=== PATIENT | female | born 1955 | race Caucasian/White ===

== ENCOUNTER 2021-02-09 12:50 | Emergency (ER) | payer OTHER, MEDICARE, SELFPAY ==
[2021-02-09 12:56] VITALS: BP 126/83; PULSE 65; RESP 16; TEMP 36.6; O2SAT 97
--- NOTE | 2021-02-09 13:51 | ED.FEMALEGU ---
HPI - Female Genitourinary General Chief complaint: Urogenital-Female Stated complaint: Urinary Problem Time Seen by Provider: 02/09/21 13:52 Source: patient Mode of arrival: ambulatory Limitations: no limitations History of Present Illness HPI Narrative: Shell Marin is a 65 yo female with PMH of GERD, PVCs, who comes complaining of dysuria including difficulty starting stream and burning with urination x3 days; mild lower back pain no fever no vaginal discharge Related Data Allergies Allergy/AdvReac Type Severity Reaction Status Date / Time No Known Allergies Allergy Verified 02/09/21 13:38 Review of Systems Review of Systems: CONSTITUTIONAL: Denies fever, chills, sweats. EYES: Denies visual changes, redness, discharge. ENT: Denies rhinorrhea, congestion, sore throat, otalgia. CARDIOVASCULAR: Denies chest pain, palpitations, edema. RESPIRATORY: Denies dyspnea, wheezing, cough GASTROINTESTINAL: Denies abdominal pain, nausea, vomiting, diarrhea. GENITOURINARY: Has dysuria, no hematuria, abnormal discharge SKIN: Denies rash or itching. NEUROLOGIC: Denies numbness, or focal weakness. PSYCHIATRIC: Denies anxiety or depression. [facility] Past Medical History Medical History GERD (gastroesophageal reflux disease) PVC (premature ventricular contraction) Social History Social History (Updated 02/09/21 @ 13:54 by Vivian Neumann CNP) Smoking status: Never smoker Comments At time of signature, I agree with nursing past medical, surgical, social and family history. There is no relevant family history pertinent to the presenting complaint. Exam Narrative: GENERAL: This is a well-nourished, well-developed patient, in mild distress. HEAD: normocephalic, atraumatic. EYES: PERRL. Sclera clear/white. Vision is grossly intact. EARS: External ears normal, Hearing grossly intact. NOSE: External nose normal THROAT: Mucous membranes moist, NECK: Neck supple, non-tender CARDIOVASCULAR: Regular rate and rhythm without murmurs, gallops, or rubs. RESPIRATORY: Clear to auscultation. Breath sounds equal bilaterally. No wheezes, rales, or rhonchi. GASTROINTESTINAL: Abdomen soft, no tenderness SKIN: warm, intact with no suspicious lesions or rash, good texture and turgor. NEURO: awake, alert, and oriented to person, place and time. There were no obvious focal neurologic abnormalities. Steady gait EXTREMITIES: Normal range of motion. BACK: Nontender without deformity Course Course Emergency Course: Patient comes with symptoms of mild burning, difficulty starting urinary flow x3 days-has had urinary tract infections in the distant past UA shows no nitrates no leukocytes no blood Discussed with patient and treated for dysuria Bactrim DS twice daily x5 days Vital Signs Vital signs: Vital Signs Temperature 97.8 F 02/09/21 12:56 Pulse Rate 65 02/09/21 12:56 Respiratory Rate 16 02/09/21 12:56 Blood Pressure 126/83 02/09/21 12:56 Pulse Oximetry 97 02/09/21 12:56 Temperature 97.8 F 02/09/21 12:56 Pulse Rate 65 02/09/21 12:56 Respiratory Rate 16 02/09/21 12:56 Blood Pressure 126/83 02/09/21 12:56 Pulse Oximetry 97 02/09/21 12:56 MDM - Female Genitourinary Differential Diagnosis Differential diagnosis: Likely urinary tract infection, cervicitis, cystitis and other Lab Data Labs: Urine Glucose Negative Reference Range: Negative Urine Bilirubin Negative Reference Range: Negative Urine Ketone Negative Reference Range: Negative Urine Specific [place] 1.010 Reference Range:1.001-1.035 Urine Blood Negative
== END 2021-02-09 14:06 | disposition home or self-care (01) ==
PROVIDERS: Emergency Provider Nurse Practitioner
DX: R30.0 Dysuria (principal); K21.9 Gastro-esophageal reflux disease without esophagitis; I49.3 Ventricular premature depolarization
CPT/HCPCS: 81003; 99213; G0463

== ENCOUNTER 2023-09-02 11:22 | Emergency (ER) | payer BC, MEDICARE, SELFPAY ==
--- NOTE | ~2023-09-02 | XR_ITS ---
4 views of the orbits CLINICAL HISTORY: Trauma FINDINGS: No fracture identified. Orbital margins appear intact. Paranasal sinuses are clear. Soft ti ssues are unremarkable. IMPRESSION: No significant abnormality seen. Reviewed, dictated and finalized at location .
[2023-09-02 11:35] VITALS: BP 162/101; PULSE 70; RESP 16; TEMP 37; O2SAT 100
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
[2023-09-02 11:40] VITALS: BP 167/93
== END 2023-09-02 12:38 | disposition home or self-care (01) ==
PROVIDERS: Emergency Provider Nurse Practitioner Family; PCP Internal Medicine
DX: S05.11XA Contusion of eyeball and orbital tissues, right eye, initial encounter (principal); W50.0XXA Accidental hit or strike by another person, initial encounter; K21.9 Gastro-esophageal reflux disease without esophagitis
CPT/HCPCS: 70200; 99213; G0463

== ENCOUNTER 2024-07-25 17:16 | Emergency (ER) | payer OTHER, MEDICARE, SELFPAY ==
--- OUTSIDE RECORDS SUMMARY | 2024-07-25 17:19 | XMS_ITS | Clinical Summary ---
Author Organization [facility] Address [address] [place] [address] Care Team Providers Care Service Car Driver Name Role Phone Marco Ramirez MD Primary Care Provider [phone] Source Comments [facility],non-owned Affiliates and Associated Physician Practices is amultiple site organization consisting of ambulatory clinics and hospital sitesin [place], [place], [place] and [place]. This disclosure is being madepursuant to the Care Everywhere program and may not contain all information available regarding this patient. 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 Gender Identity Not on file Sexual Orientation Not on file Plan of Treatment Health Maintenance Due Date Last Done Comments COLOGUARD (AGES 45-75) - COLON CA SCREENING 1955 COLON MONITORING 1955 COLONOSCOPY - COLON CA SCREENING 1955 CT COLONOGRAPHY - COLON CA SCREENING 1955 Colorectal Cancer Screening 1955 FIT - COLON CA SCREENING 1955 FLEX SIG - COLON CA SCREENING 1955 LIPID TESTING 1955 HEPATITIS C SCREENING 10/31/1973 DTAP/TDAP/TD VACCINES (1 - Tdap) 11/04/1974 PNEUMOCOCCAL VACCINE 50+ (1 of 1 - PCV) 11/04/2005 ZOSTER VACCINE (1 of 2) 11/04/2005 COVID-19 VACCINE (3 - 2024-25 season) 2023 06/27/2020, 06/06/2020 DEPRESSION SCREENING 02/22/2024 INFLUENZA VACCINE (Season Ended) 2024 11/03/2020, 01/11/2020, 03/28/2014, Additional history exists MAMMOGRAM 08/09/2025 08/10/2023, 03/24, 04/02/2021, Additional history exists Respiratory Syncytial Virus (RSV) Vaccine Pt: or over 60 yrs (1 - 1-dose 75+ series) 11/04/2030 BONE DENSITY TESTING Completed 07/07/2016, 07/08/19 17 HEPATITIS B VACCINE Aged Out No longe r eligible based on patient's age to complete this topic HIB VACCINE Aged Out No longer eligi ble based on patient's age to complete this topic HPV VACCINE Aged Out No longer eligi ble based on patient's age to complete this topic MENINGOCOCCAL (Group B) VACCINE SHARED DECISION-MAKING Aged Out No longer eligible based on patient's age to complete this topic MENINGOCOCCAL GROUPS A/C/Y/W VACCINE Aged Out No longer eligible based on patient's age to complete this topic Procedures Procedure Name Priority Date/Time Associated Diagnosis Comments MAMMO BILAT SCREENING [place] PARTH Routine 08/10/2023 9:58 AM CDT Screening mammogram for breast cancer DEXA BONE DENSITY AXIAL SKELETON Routine 07/07/2016 7:50 AM CDT Post menopausal syndrome from Last 3 Months or Most Recently Relevant to Health Maintenance Results * MAMMO BILAT SCREENING [place] (08/10/2023 9:58 AM CDT) Anatomical Region Laterality Modality Breast Bilateral Mammography 08/10/2023 11:2 2 AM CDT Impressions 08/10/2023 11:22 AM CDT : There is no mammographic evidence of malignancy. OVERALL FINAL ASSESSMENT: BI-RADS Category 1: Negative. Annual screening mammography is recommended. > Interpreting Provider: Julia Szymanski MD on 08/10/2023 11:22 AM Narrative 08/10/2023 11:22 AM CDT EXAMINATION: BILATERAL DIGITAL SCREENING MAMMOGRAM AND BILATERAL BREAST TOMOSYNTHESIS HISTORY: Screening. COMPARISON: Serial examinations dating back to 2021. TECHNIQUE: BILATERAL digital breast tomosynthesis (DBT) and synthetic 2D digital mammogram images were obtained (bilateral craniocaudal and mediolateral oblique projections) including computer aided detection (CAD.) BREAST PARENCHYMAL COMPOSITION:Category B: There are scattered areas of fibroglandular density. MAMMOGRAM FINDINGS: There are no new suspicious masses, calcifications, or areas of architectural distortion in either breast, and there has been no significant interval change. us Marco Ramirez MD MAMMO ORDERABLES Final Result * DEXA BONE DENSITY AXIAL SKELETON (07/07/2016 7:50 AM CDT) Anatomical Region Laterality Modality Mammography 07/07/2016 7:57 AM CDT Narrative 07/07/2016 8:45 AM CDT BONE MINERAL DENSITY STUDY INDICATION: Osteoporosis screening. Postmenopausal status. FINDINGS: The average bone mineral density from L1 to L4 is 1.109 g/cm2. The T-score is -0.6 and the Z-score is 0.8. The average bone mineral density of the total mean hip is 0.948 g/cm2. The T-score is -0.5 and the Z-score is 0.6. ASSESSMENT: Findings consistent with normal total mean bone mineral density. No significant increased fracture risk. WORLD HEALTH ORGANIZATION DEFINITIONS OSTEOPENIA = -1 to -2.5 SD BELOW T SCORE. OSTEOPOROSIS = Less than -2.5 SD BELOW T SCORE. Edited by Mary Jo Lanza on 07/07/2016 8:18 AM Procedure Note Mary Beth Becker MD - 07/07/2016 BONE MINERAL DENSITY STUDY INDICATION: Osteoporosis screening. Postmenopausal status. FINDINGS: The average bone mineral density from L1 to L4 is 1.109 g/cm2. The T-score is -0.6 and the Z-score is 0.8. The average bone mineral density of the total mean hip is 0.948 g/cm2. The T-score is -0.5 and the Z-score is 0.6. ASSESSMENT: Findings consistent with normal total mean bone mineral density. No significant increased fracture risk. WORLD HEALTH ORGANIZATION DEFINITIONS OSTEOPENIA = -1 to -2.5 SD BELOW T SCORE. OSTEOPOROSIS = Less than -2.5 SD BELOW T SCORE. Edited by Mary Jo Lanza on 07/07/2016 8:18 AM us Marco Ramirez MD DEXA ORDERABLES Final Result from Last 3 Months or Most Recently Relevant to Health Maintenance Insurance [facility] Address: [address] [address] [facility] [place] [address] Care Teams Service Car Driver Relationship Specialty Start Date End Date Marco Ramirez MD PCP - General Internal Medicine 11/21/12
--- OUTSIDE RECORDS SUMMARY | 2024-07-25 17:19 | XMS_ITS | Clinical Summary ---
Author Organization [facility] Address [address] [place] [address] Care Team Providers Care Rn Integrity Name Role Phone Marco Ramirez MD Primary Care Provider + Allergies No known active allergies Medications aspirin 325 mg tablet Take 325 mg by mouth daily Active ezetimibe (ZETIA) 10 mg tablet Take 10 mg by mouth daily 1 Active pravastatin (PRAVACHOL) 20 mg tablet Take 1 tablet by mouth nightly 1 Active albuterol HFA (ProAir HFA) 90 mcg/actuation inhaler Inhale 2 puffs every 4 (four) hours as needed for wheezing or shortness of breath 8.5 g 1 Active Additional Information Patient not taking.Reported on 10/22/2021 multivitamin capsule Take 1 capsule by mouth daily Active Active Problems Problem Noted Date Diagnosed Date Combined forms of age-related cataract of both e yes 07/26/2019 Assessment & Plan (12/03/2019 10:02 AM CDT): Early. Non-visually significant. -- Observe Assessment & Plan (07/26/2019 10:46 AM CDT): Early. Non-visually significant. -- Observe Vitreous hemorrhage of left eye 07/26/2019 Assessment & Plan (12/03/2019 10:02 AM CDT): resolved Retinal hole of left eye 07/18/2019 Overview (07/26/2019): Onset: 07/17/19 S/p retinopexy 07/18/19 Assessment & Plan (12/03/2019 10:01 AM CDT): Operculated hole with small amount of hemorrhage status post (s/p) retinopexy 07/18/2019 -- Good barricade laser matured with 2 rows anteriorly, 3 posteriorly, no hemorrhage today -- Symptomatic flashes remain stable, likely from remaining operculum -- Remains without PVD noted on exam, will bring back for repeat exam 6 months or sooner PRN -- strict return precautions discussed including worsening floaters, flashes of light, curtains in vision Assessment & Plan (08/29/2019 9:44 AM CDT): Operculated hole with small amount of hemorrhage status post (s/p) retinopexy 07/18/2019 -- Good barricade laser maturing with 2 rows anteriorly, 3 posteriorly, no hemorrhage today -- Symptomatic flashes remain stable, likely from remaining operculum -- Remains without PVD noted on exam, will bring back for repeat exam -- strict return precautions discussed including worsening floaters, flashes of light, curtains in vision -- pt will RTC in 3 mo for repeat DFE OS Assessment & Plan (07/26/2019 10:46 AM CDT): Operculated hole with small amount of hemorrhage -- Good barricade laser maturing -- Still having some symptomatic flashes and no PVD noted on exam, will bring back for repeat exam -- strict return precautions discussed including worsening floaters, flashes of light, curtains in vision -- pt will RTC in 1 mo for repeat DFE OS Assessment & Plan (07/18/2019 12:14 PM CDT): Small superotemporal operculated hole with small amount of vitreous (vit) heme as well. No other RT/RD on [employer] -- given recent onset and ongoing symptoms, reasonable to proceed with laser retinopexy -- r/b/a discussed of laser treatment v observation and patient elects to proceed. See procedure note -- strict return precautions discussed including worsening floaters, flashes of light, curtains in vision -- pt will RTC in 1 week for repeat DFE OS Surgical History Surgery Date Site/Laterality Comments WISDOM TOOTH EXTRACTION RETINA SURGERY Left Medical History Medical History Date Comments Hyperlipidemia Mitral valve prolapse Retinal tear Family History Medical History Relation Name Comments Cancer Father Heart disease Mother Relation Name Status Comments Father Mother Social History Tobacco Use Types Packs/Day Years Used Date Smoking Tobacco: Never Tobacco Cessation:Counseling Given: Not Answered Alcohol Use Standard Drinks/Week Comments Never 0 (1 standard drink = 0.6 oz pur e alcohol) AUDIT-C Answer Date Recorded Q1: How often do you have a drink containing alc ohol? 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 Gender Identity Not on file Sexual Orientation Not on file Obstetrics History Last Filed Vital Signs Vital Sign Reading Time Taken Comments Blood Pressure 120/80 10/22/2021 8:41 AM CDT Pulse 63 10/22/2021 8:41 AM CDT Temperature 36.9 C (98.5 F) 10/22/2021 8:41 AM CDT Respiratory Rate 16 10/22/2021 8:41 AM CDT Oxygen Saturation 99% 10/22/2021 8:41 AM CDT Inhaled Oxygen Concentration - - Weight 60.8 kg (134 lb) 10/22/2021 8:41 AM CDT Height 156.2 cm (5' 1.5) 10/22/2021 8:41 AM CDT Body Mass Index 24.91 10/22/2021 8:41 AM CDT Plan of Treatment Health Maintenance Due Date Last Done Comments Breast Cancer Screening-Mammogram 1955 Depression Screening 1955 Fall Risk Assessment 1955 Hepatitis C Screening 1955 Osteoporosis Screening-Bone Density Scan 1955 Pneumococcal vaccine 65+ (1 of 1 - PCV) 11/04/2005 Zoster Vaccine (1 of 2) 11/04/2005 Well Visit 65+ 11/04/2020 Colon Cancer Screening-Colonoscopy 06/22/2022 06/22/2012 Influenza Vaccine (Season Ended) 2024 11/03/2020, 01/11/2020, 03/28/2014, Additional history exists DTaP/Tdap/Td Vaccine (3 - Td or Tdap) 12/04/2028 12/04/2018, 03/01/2008, 09/07/2005 Hepatitis B Screening Completed 10/05/2004 , 12/17/2003, 10/30/2003 Colon Cancer Screening-CT Colonography Discontinued 06/22/2012 Colon Cancer Screening-DNA Stool Discontinued 06/23/19 Colon Cancer Screening-FIT Discontinued 06/22/2012 Colon Cancer Screening-Sigmoidoscopy Discontinued 06/22/2012 Procedures Procedure Name Priority Date/Time Associated Diagnosis Comments COLONOSCOPY 06/22/2012 12:00 AM CDT from Last 3 Months or Most Recently Relevant to Health Maintenance Results * COLONOSCOPY (06/22/2012 12:00 AM CDT) Anatomical Region Laterality Modality Other Narrative 06/22/2012 12:00 AM CDT Ordered by an unspecified provider. Procedure Note Provider, MD Vazquez - 06/22/2012 12:00 AM CDT PROCEDURE REPORT Patient: TERESA MARIN Account: [id number] Room No: : 1955 Patient Type: [facility] Attend.: Nicolás Dewey M.D. Admit Date: 06/22/2012 Dict.: Nicolás Dewey M.D. Disch. Date: 06/22/2012 NAME OF PROCEDURE: Colonoscopy. DATE OF PROCEDURE: June 22, 2012. PATIENT REFERRED BY: Dr. Sharma. PREVIOUS PROCEDURE: Colonoscopy with polyps removed. X-RAYS: None. HISTORY AND PHYSICAL EXAMINATION: The patient is a 56-year old whitefemale returning now for screening colonoscopy and follow up of colonic polyps.She denies any specific complaints and she is otherwise doing clinicallywell. Physical examination is that of a well developed, well nourished 56-yearold female in no acute distress. She is nonicteric. Her lungs are clear. Heartwas regular. GI was soft and supple. Extremities showed no calf pain, cordsor edema. PRE-PROCEDURE DIAGNOSES: 1. Screening colonoscopy in a 56-year old female. 2. History of adenomatous polyps. PHYSICIAN: Nicolás Dewey M.D. INSTRUMENT USED: Hubspan video endoscope. MEDICATIONS: Per Anesthesia. FINDINGS: The colonoscope was introduced and passed to the cecum. Thepatient tolerated the procedure well. There were no complication. Upon withdrawalof the colonoscope, a sessile polyp was noted opposite the ileocecal valve atthe mouth of the cecum. This was picked up, hot biopsied and destroyed. The remainder of the cecum, right and transverse colons were normal. Thepatient did have diverticulosis scattered throughout the colon. In the leftcolon, several small, hyperplastic appearing polyps were noted. These weresimply picked up, cauterized and destroyed. Once again there were multiple diverticula. The remainder of the left, retrosigmoid and rectum werenormal. Retroflexed view of the internal anal area showed small internalhemorrhoidal tissue. Perianal examination showed no perianal disease, no rectalmasses. COMPLICATIONS: None. POST-PROCEDURE DIAGNOSES: 1. Colonic polyps, status post hot biopsy or cautery and destruction.One polyp removed in the right colon, several small, hyperplasticpolyps cauterized in the left and rectosigmoid. 2. Diverticulosis. 3. Otherwise normal screening colonoscopy to the cecum with awithdrawal time of 8 minutes and 38 seconds. Preparation was good. POST-PROCEDURE ORDERS: 1. Post sedation instructions. 2. High fiber diet. 3. Check pathology. 4. Repeat colon in five years pending pathology report. 5. Follow up with Dr. Sharma. Nicolás Dewey M.D. JULIA/alexus TD: 06/23/2012 09:23 CC: Dr. Sharma Authenticated by Nicolás Dewey MD On 06/26/2012 12:57:45 PM us Historical Provider ENDOSCOPY PROCEDURES Hilda l Result from Last 3 Months or Most Recently Relevant to Health Maintenance Insurance [employer] Care Teams Rn Integrity Relationship Specialty Start Date End Date Marco Ramirez MD [facility] - General 10/12/16
--- OUTSIDE RECORDS SUMMARY | 2024-07-25 17:19 | XMS_ITS | Encounter Summary ---
Author Organization [facility] Address [address] [place] [address] Care Team Providers Care Sand Molder Name Role Phone Marco Ramirez MD Primary Care Provider [phone] Reason for Visit * Reason Comments Provider Call Encounter Details Date Type Department Care Team (Late st Contact Info) Description 05/31/2024 Telephone [facility] Primary Care [address] [place] [address] Marco Ramirez MD [address] [facility] [address] [place] [address] Provider Call Social History Tobacco Use Types Packs/Day Years Used Date Smoking Tobacco: Never Passive Smoke Exposure: Never Smokeless Tobacco: Never Alcohol Use Standard Drinks/Week Comments Yes 0 (1 standard drink = 0.6 oz pur e alcohol) 4x/year Feeling Safe Answer Date Recorded Are you in a relationship wi th someone who hurts you emotionally and/or physically? 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 Topic: Pwlvroyc-Ow-Euxgvchw Call >> May 31, 2024 10:36 AM Bettie Watson wrote: Caller is requesting to speak with Clinical Care Team. Caller Name: bam with [facility] Callback Number: [phone] Clinician Type: Other healthcare professional not listed above Call Notes: bam with [facility] states patient is supposed to get mri of lumbar spine, states additional clinic information is needed to get this approved, states he sent over a fax an hour ago fax [phone] Is this addressing an immediate patient care need? No documented in this encounter Plan of Treatment Upcoming Encounters Date Type Department Care Team (Late st Contact Info) Description 11/27/2024 2:40 PM CDT Office Visit [facility] [place] [address] Marco Ramirez MD [address] [place] [address] [address] 06/26/2025 11:45 AM CDT Office Visit [facility] Heart and Vascular At [facility] [address] [facility] [address] [place] [phone] Sherman Mantilla MD [facility] S. [facility] [address] [place] [address] documented as of this encounter Visit Diagnoses Not on filedocumented in this encounter Care Teams Sand Molder Relationship Specialty Start Date End Date Marco Ramirez MD [address] [place] [address] [address] PCP - General Internal Medicine 08/01/23 documented as of this encounter
--- OUTSIDE RECORDS SUMMARY | 2024-07-25 17:19 | XMS_ITS | Encounter Summary ---
Author Organization [facility] Address [address] [place] [address] Care Team Providers Care Instructor Trainer Canine Service Name Role Phone John Kamara MD Primary Care Provider [phone] Encounter Details Date Type Department Care Team (Late st Contact Info) Description 12/13/[address] 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 Spoke with pt. given above message. /chen Electronically Signed by: Trinity Villasenor on Wednesday, December 13, 2006 * John Kamara MD - 07/07/2007 1:16 PM CDT SPECIALIST REFERRAL REQUEST DATE: DEC 13, 2006 Note created by: Shey Greene C 01:52 p Patient Name : TERESA MARIN Address: [address] [place] [address] D.O.B: 1955 SSN: [id number] Parent/Guardian if applicable: Patient Insurance: [employer] Policy#: [id number] Group #: Best To Call : HOME. Best Time to Call : ANYTIME. May We Leave Message At That Number : YES, LEAVE MESSAGE. Referring to: PHYSICAL THERAPY/REHAB [facility] PH: [phone] Reason for referral: neck pain ORDERING PHYSICIAN : JOHN KAMARA MD PRIORITY OF REFERRAL: AT PATIENT'S CONVENIENCE. OFFICE PTA & PHONE: Shey Greene C FOR SCHEDULING USE ONLY FIRST ATTEMPT Date:DEC 14, 2006 Federica Robles D 04:00 p Left Message with Family. son, he will have his mother call back to set [facility] APPOINTMENT DATE : 12/14/2006 ( 1:30 pm) Number of visits authorized : 12 EFFECTIVE DATES : Valid from: 12/14/2006 To: 03/16/2007 NT 12/14/06 04:22 pm Referral number: [id number] nn * John Kamara MD - 07/07/2007 1:16 PM CDT WEIGHT: 150lbs BLOOD PRESSURE: 128/86 Right Arm Sitting NURSE NAME: Chance Noel N TOBACCO USE Patient does not currently use tobacco. CHIEF COMPLAINT Neck pain HISTORY: neck pain no injury no trauma known SOCIAL HISTORY: TOBACCO USE: Has no significant smoking history. DISCUSSED SMOKING: neg. PHYSICAL EXAMINATION: CONSTITUTIONAL: GENERAL APPEARANCE: Healthy appearing patient in no distress. NECK/THYROID: Trachea midline. No thyroid enlargement, tenderness, or mass. No supraclavicular or cervical adenopathy. RESPIRATORY: Clear to auscultation and percussion. Normal respiratory effort. CARDIOVASCULAR: CARDIAC: Regular rhythm. No murmurs, rubs, or gallops. ARTERIAL: No aortic bruits. EDEMA/VARICOSITIES OF EXTREMITIES: No edema or varicosities. GASTROINTESTINAL: ABDOMEN: Soft, non-tender, without masses. Bowel sounds active. LIVER/SPLEEN/KIDNEY: No hepatosplenomegaly, tenderness or nodularity. Kidneys not palpable. MUSCULOSKELETAL EXAM: upper parasp m tender, nut sorter operator ok, full rom neck, mild ls tenderness ASSESSMENT/PLAN: 715.90-OSTEOARTHROSIS UNSPECIFIED check x ray try med, reassess, discussed MEDICATIONS: SKELAXIN ORAL TABLET 800 MG, 1 Two Times A Day, 12 Dispensed, status: NEW PRESCRIPTION, 12/13/2006. LAB ORDERS: Order number: [id number] Test Ordered: XRAY C SPINES, ROUTINE (5 VIEWS) W/OBL 724.5-BACK PAIN as above try pt SPECIALTY REFERRAL: PHYSICAL THERAPY/REHAB [facility] Patient Education: Risks, benefits, and possible side effects of medication(s) were reviewed with the patient. RETURN VISIT : Instructed to call if not improving. Electronically Signed by: John Kamara MD on Wednesday, December 13, 2006 documented in this encounter Plan of Treatment Upcoming Encounters Date Type Department Care Team (Late st Contact Info) Description 11/27/2024 2:40 PM CDT Office Visit [facility] Primary Care [address] [place] [address] John Kamara MD [address] [place] [address] [address] [place] [address] 06/26/2025 11:45 AM CDT Office Visit [facility] Heart and Vascular At [facility] [address] [facility] [address] [place] [address] Sherman Mantilla MD [facility] [address]. [facility] [address] [place] [address] documented as of this encounter Visit Diagnoses Not on filedocumented in this encounter Care Teams Instructor Trainer Canine Service Relationship Specialty Start Date End Date John Kamara MD [address] [place] [address] [address] [place] [address] PCP - General Internal Medicine 08/01/23 documented as of this encounter
--- OUTSIDE RECORDS SUMMARY | 2024-07-25 17:19 | XMS_ITS | Encounter Summary ---
Author Organization [facility] Address [address] [place] [address] Care Team Providers Care Manager Of Data Name Role Phone Marco Ramirez MD Primary Care Provider [phone] Reason for Visit * Reason Comments Clinical Consult Before Scheduling Encounter Details Date Type Department Care Team (Late st Contact Info) Description 07/25/2024 Telephone [facility] Primary Care [address] [place] [address] Marco Ramirez MD [address] [facility] [address] [place] [address] Clinical Consult Before Scheduling Social History Tobacco Use Types Packs/Day Years [...] on file 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 Confirmed last tetanus vaccine was 12/04/2018. Patient going to Urgent care for eval. * Telephone Encounter - Celestina Barrera - 07/25/2024 4:25 PM CDT Copied from [facility] #[id number]. Topic: Symptomatic Care >> Jul 25, 2024 4:23 PM Celestina Watson wrote: Has this patient seen any provider (current or former) at the requested clinic in the past? Yes, Select the appropriate age range and symptom Patient has symptoms and is seeking care. Caller Name: Shell Marin Callback Number: mother Call Notes: bit on both legs by a dog Age Range/Symptom: Adult 18+ - Bite (Animal or Human) Transferred to [facility] pito and Conchita answered call. documented in this encounter Plan of Treatment Upcoming Encounters Date Type Department Care Team (Late st Contact Info) Description 11/27/2024 2:40 PM CDT Office Visit [facility] Primary Care [address] Marco Ramirez MD [address] [place] [address] [address] 06/26/2025 11:45 AM CDT Office Visit [facility] Heart and Vascular At [facility] [address] [facility] [address] [place] [address] Sherman Mantilla MD [facility] S. [facility] [address] [place] [address] documented as of this encounter Visit Diagnoses Not on filedocumented in this encounter Care Teams Manager Of Data Relationship Specialty Start Date End Date Marco Ramirez MD [address] [place] [address] [address] [place] [address] PCP - General Internal Medicine 08/01/23 documented as of this encounter
--- OUTSIDE RECORDS SUMMARY | 2024-07-25 17:19 | XMS_ITS | Encounter Summary ---
Author Organization [facility] Address 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 [facility] 2014 [place] [address] documented as of this encounter Visit Diagnoses Not on filedocumented in this encounter Care Teams Him Specialists Relationship Specialty Start Date End Date Marco Ramirez MD [address] [place] [address] PCP - General Internal Medicine 08/01/23 documented as of this encounter
--- OUTSIDE RECORDS SUMMARY | 2024-07-25 17:19 | XMS_ITS | Encounter Summary ---
Author Organization [facility] Address [address] [place] [address] Care Team Providers Care Sole Sewer Hand Name Role Phone Marco Ramirez MD Primary Care Provider [phone] Encounter Details Date Type Department Care Team (Late st Contact Info) Description 01/31/2006 Outpatient Historical [facility] Internal Medicine [address] [address] Marco Ramirez MD [address] [place] [address] [address] [place] [address] Social History Tobacco Use Types Packs/Day Years Used Date Smoking Tobacco: Never Assessed Comments Unknown Sex and Gender Information Value Date Recorded Sex Assigned at Not on file 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 Gender Identity Not on file Sexual Orientation Not on file documented as of this encounter Last Filed Vital Signs Vital Sign Reading Time Taken Comments Blood Pressure 120/70 01/31/2006 2:15 PM SHALE PLANER OPERATOR Pulse - - Temperature 37 C (98.6 F) 01/31/2006 2:15 PM SHALE PLANER OPERATOR Respiratory Rate - - Oxygen Saturation - - Inhaled Oxygen Concentration - - Weight 64 kg (141 lb) 01/31/2006 2:15 PM SHALE PLANER OPERATOR Height - - Body Mass Index - - documented in this encounter Plan of Treatment Upcoming Encounters Date Type Department Care Team (Late st Contact Info) Description 11/27/2024 2:40 PM CDT Office Visit [facility] Primary Care [address] [place] [address] Marco Ramirez MD [address] [place] [address] [address] [place] [address] 06/26/2025 11:45 AM CDT Office Visit [facility] Heart and Vascular At [facility] [address] [facility] [address] [place] [address] Sherman Mantilla MD [facility] S. [facility] 2014 [place] [address] documented as of this encounter Visit Diagnoses Not on filedocumented in this encounter Care Teams Sole Sewer Hand Relationship Specialty Start Date End Date Marco Ramirez MD [address] [place] [place] [phone] PCP - General Internal Medicine 08/01/23 documented as of this encounter
--- OUTSIDE RECORDS SUMMARY | 2024-07-25 17:19 | XMS_ITS | Encounter Summary ---
Author Organization [facility] Address [address] [place] [address] Care Team Providers Care Belt Fixer Name Role Phone Marco Ramirez MD Primary Care Provider [phone] Encounter Details Date Type Department Care Team (Late st Contact Info) Description 09/08/2005 Outpatient Historical [facility] [address] [place] [address] Ralph Souza MD [address] [place], [place] [address] [address] Social History Tobacco Use Types Packs/Day Years Used Date Smoking Tobacco: Never Assessed Comments Unknown Sex and Gender Information Value Date Recorded Sex Assigned at Not on file 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 Gender Identity Not on file Sexual Orientation Not on file documented as of this encounter Plan of Treatment Upcoming Encounters Date Type Department Care Team (Late st Contact Info) Description 11/27/2024 2:40 PM CDT Office Visit [facility] Primary Care [place] [address] [place] [address] Marco Ramirez MD [address] [place] [address] [address] [place] [address] 06/26/2025 11:45 AM CDT Office Visit [facility] Heart and Vascular At [facility] [address] [facility] [address] [place] [address] Sherman Mantilla MD [address] [facility] [address] [place] [address] documented as of this encounter Visit Diagnoses Not on filedocumented in this encounter Care Teams Belt Fixer Relationship Specialty Start Date End Date Marco Ramirez MD [address] [place] [address] PCP - General Internal Medicine 08/01/23 documented as of this encounter
--- OUTSIDE RECORDS SUMMARY | 2024-07-25 17:19 | XMS_ITS | Continuity of Care Document ---
Author Organization [facility] Address [address] [place] [address] Phone Care Team Providers Care Real Estate Agency Licensee Name Role Phone Dennis Ramirez MD Unavailable Unavailable Allergies, Adverse Reactions, Alerts Substance Reaction Status Criticality No Known allergies Procedures Procedure Date Eye Exam, New Patient Advance Directives Directive Yes / No Effective Date File Name Resuscitation Not Answered N/A N/A Life Support Not Answered N/A N/A Intubation Not Answered N/A N/A Antibiotics Not Answered N/A N/A IV Fluid Support Not Answered N/A N/A Tube Feed Not Answered N/A N/A Other Directive N/A N/A WARNING:The information contained in this section is historical and is provided for information only and does not constitute a legal document or any assurance that the information is still accurate. Please verify the information with the phillips of the legal document before using it for clinical purposes. Encounters Encounter Description Practice Location Reason(s) For Visit Diagnoses Date Provider Providers Copied on Encounter [facility], [address], [place], [place], [id number], [place] tel:[phone] SEC Renny BLAIR Professional PRESBYOPIAOTHR MIGRNE WO NTRC MGRNTEAR FILM INSUFFIC NOS 2 Ashley Collins. [address] [facility] [place] [address], [place], [place], [id number], [place]. tel:[phone] Referring Provider: Marco Ramirez MD M, [address] [facility] [address], [place], [address]. tel:[phone] Family History Family Member Type Diagnosis Age At Onset No Information Payers Payer name Insurance type Covered libertarian ID Authorjuliusa tibridger(s) R CI [id number] Social History Type Description Quantity Date Captured Comments Alcohol Use Details No Caffeine Use Details No Tobacco Use Status No Information Smoking Status No Information Sex Female Chief Complaint And Reason For Visit No Information Reason For Referral Reason For Referral No Information History Of Present Illness Encounter Date Complaint History Of Prese nt Illness No Information Functional Status Date Functional Assessmen t No Information Instructions Date Instruction Additional Infor mation TEAR FILM INSUFFIC N OS, OU - will continue to monitor - Discussed dx with pt. Recommends warm compress and massage. Will monitor. Related to TEAR FILM INSUFFIC NOS Presbyopia, OU w/ as tigmatism - Pt doesn't wear glasses often. Discussed stronger bifocals come with age. Glasses rx given today. Monovision contacts and laser discussed. Will monitor. Related to Presbyopia Visual Migraine, OU - vision affected - will continue to monitor - 3 ocular migraines, visual without headache following. Last one took approximately 10 minutes to resolve. Discussed dx in detail with pt. No treatment needed. Will monitor. Related to Visual Migraine - 2 years complete Related to Pr esbyopia Assessments Type Assessment Date No Information Patient Care Teams Name Effective Dates (start - stop) Status Members No Information
--- OUTSIDE RECORDS SUMMARY | 2024-07-25 17:19 | XMS_ITS | Encounter Summary ---
Author Organization [facility] Address 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 Gender Identity Not on file Sexual Orientation Not on file documented as of this encounter Plan of Treatment Upcoming Encounters Date Type Department Care Team (Late st Contact Info) Description 11/27/2024 2:40 PM CDT Office Visit [facility] Primary Care [address] [place] [address] Marco Ramirez MD [address] [place] [address] [address] [place] [address] 06/26/2025 11:45 AM CDT Office Visit [facility] Heart and Vascular At [facility] [address] [facility] [address] [place] [address] Sherman Mantilla MD [address] [facility] 2014 [place] [id number] documented as of this encounter Procedures Procedure Name Priority Date/Time Associated Diagnosis Comments CBC WITH DIFFERENTIAL Routine 09/10/2005 6:15 AM CDT CBC WITH DIFFERENTIAL Routine 09/10/2005 6:15 AM CDT VANCOMYCIN LEVEL TROUGH Routine 09/10/2005 6:15 AM CDT BASIC METABOLIC PANEL Routine 09/09/2005 4:15 AM CDT CBC WITH DIFFERENTIAL Routine 09/08/2005 6:43 PM CDT CBC WITH DIFFERENTIAL Routine 09/08/2005 6:43 PM CDT C-REACTIVE PROTEIN Routine 09/08/2005 6: 43 PM CDT COMPREHENSIVE METABOLIC PANEL Routine 09/08/2005 6:43 PM CDT documented in this encounter Results * CBC WITH DIFFERENTIAL (09/10/2005 6:15 AM CDT) NEUTROPHILS 62 45 - 70 % INTERFAC E SYSTEM LYMPHOCYTES 24 16 - 45 % INTERFAC E SYSTEM MONOCYTES 11 3 - 13 % INTERFACE SYSTEM EOSINOPHILS 2 0 - 7 % INTERFAC E SYSTEM BASOPHILS 0 0 - 2 % INTERFACE SYSTEM NEUTROPHIL ABSOLUTE 4.81 1.90 - 7.00 K/uL INTERFACE SYSTEM LYMPHOCYTE ABSOLUTE 1.87 0.70 - 4.50 K/uL INTERFACE SYSTEM MONOCYTE ABSOLUTE 0.87 0.10 - 1.30 K/uL INTERFACE SYSTEM EOSINOPHIL ABSOLUTE 0.15 0.00 - 0.70 K/uL INTERFACE SYSTEM BASOPHILS ABSOLUTE 0.02 0.00 - 0.20 K/uL INTERFACE SYSTEM 09/10/2005 6:15 AM CDT us Ralph Souza MD HEMATOLOGY ORDERABLES Final Resu lt INTERFACE SYSTEM Refer to clinic/hospital department * (ABNORMAL) CBC WITH DIFFERENTIAL (09/10/2005 6:15 AM CDT) WBC 7.7 4.0 - 9.8 K/uL INTERFACE SYSTEM RBC 3.90 3.90 - 4.90 M/uL INTERFACE SYSTEM HEMOGLOBIN 12.1 11.8 - 14.8 g/dL INTERFACE SYSTEM HEMATOCRIT 35.1(L) 35.5 - 44.0 % INTERFACE SYSTEM MCV 90.0 82.0 - 99.0 fL INTERFACE SYSTEM MCH 31.0 27.2 - 32.6 pg INTERFACE SYSTEM MCHC 34.5 31.5 - 35.5 % INTERFACE SYSTEM RDW 13.2 11.5 - 14.5 % INTERFACE SYSTEM RDW-STDEV 42.8 37.1 - 48.7 fL INTERFACE SYSTEM PLATELETS 237 140 - 350 K/uL INTERFACE SYSTEM MPV 9.8 9.3 - 12.4 fL INTERFACE SYSTEM 09/10/2005 6:15 AM CDT Ralph Souza MD HEMATOLOGY ORDERABLES Final Resu lt Performing Organization Address City/[facility]/ZIP Co de Phone Number INTERFACE SYSTEM Refer to clinic/hospital department * VANCOMYCIN LEVEL TROUGH (09/10/2005 6:15 AM CDT) VANCOMYCIN, TROUGH 9.4 5.0 - 15.0 ug/mL INTERFACE SYSTEM Comment: Vancomycin Trough Toxic Level= >15.0 ug/mL 09/10/2005 6:15 AM CDT Taiwo Mensah MD CHEMISTRY ORDERABLES Final Res ult Performing Organization Address City/[facility]/ZIP Co de Phone Number INTERFACE SYSTEM Refer to clinic/hospital department * (ABNORMAL) BASIC METABOLIC PANEL (09/09/2005 4:15 AM CDT) GLUCOSE 93 65 - 99 mg/dL INTERFACE SYSTEM Comment:Note: Effective July 06, 2005, reference range now reflects a fasting st ate. CREATININE 0.9 0.4 - 1.2 mg/dL INTERFACE SYSTEM CALCIUM 8.6 8.6 - 10.2 mg/dL INTERFACE SYSTEM BUN 14 6 - 20 mg/dL INTERFACE SYSTEM SODIUM 136 135 - 145 mmol/L INTERFACE SYSTEM POTASSIUM 3.7 3.5 - 4.9 mmol/L INTERFACE SYSTEM Comment:Significant change f rom prior result, correlate clinically and redraw if necessary. CHLORIDE 104 96 - 108 mmol/L INTERFACE SYSTEM CO2 21(L) 22 - 30 mmol/L INTERFACE SYSTEM 09/09/2005 4:15 AM CDT Ralph Souza MD CHEMISTRY ORDERABLES Final Resul t Performing Organization Address City/[facility] de Phone Number INTERFACE SYSTEM Refer to clinic/hospital department * (ABNORMAL) CBC WITH DIFFERENTIAL (09/08/2005 6:43 PM CDT) NEUTROPHILS 80(H) 45 - 70 % INTERFAC E SYSTEM LYMPHOCYTES 10(L) 16 - 45 % INTERFAC E SYSTEM MONOCYTES 9 3 - 13 % INTERFACE SYSTEM EOSINOPHILS 1 0 - 7 % INTERFAC E SYSTEM BASOPHILS 0 0 - 2 % INTERFACE SYSTEM NEUTROPHIL ABSOLUTE 12.27(H) 1.90 - 7.00 K/uL INTERFACE SYSTEM LYMPHOCYTE ABSOLUTE 1.60 0.70 - 4.50 K/uL INTERFACE SYSTEM MONOCYTE ABSOLUTE 1.44(H) 0.10 - 1.30 K/uL INTERFACE SYSTEM EOSINOPHIL ABSOLUTE 0.10 0.00 - 0.70 K/uL INTERFACE SYSTEM BASOPHILS ABSOLUTE 0.03 0.00 - 0.20 K/uL INTERFACE SYSTEM 09/08/2005 6:43 PM CDT Ralph Souza MD HEMATOLOGY ORDERABLES Final Resu lt Performing Organization Address [facility] de Phone Number INTERFACE SYSTEM Refer to clinic/hospital department * (ABNORMAL) CBC WITH DIFFERENTIAL (09/08/2005 6:43 PM CDT) WBC 15.4(H) 4.0 - 9.8 K/uL INTERFACE SYSTEM RBC 4.41 3.90 - 4.90 M/uL INTERFACE SYSTEM HEMOGLOBIN 13.6 11.8 - 14.8 g/dL INTERFACE SYSTEM HEMATOCRIT 38.7 35.5 - 44.0 % INTERFACE SYSTEM MCV 87.8 82.0 - 99.0 fL INTERFACE SYSTEM MCH 30.8 27.2 - 32.6 pg INTERFACE SYSTEM MCHC 35.1 31.5 - 35.5 % INTERFACE SYSTEM RDW 13.2 11.5 - 14.5 % INTERFACE SYSTEM RDW-STDEV 42.3 37.1 - 48.7 fL INTERFACE SYSTEM PLATELETS 244 140 - 350 K/uL INTERFACE SYSTEM MPV 9.7 9.3 - 12.4 fL INTERFACE SYSTEM 09/08/2005 6:43 PM CDT Ralph Souza MD HEMATOLOGY ORDERABLES Final Resu lt Performing Organization Address [facility] Phone Number INTERFACE SYSTEM Refer to clinic/hospital department * (ABNORMAL) C-REACTIVE PROTEIN (09/08/2005 6:43 PM CDT) Pathologist [facility] CRP 3.6(H) 0.0 - 0.8 mg/dL INTERFACE SYSTEM 09/08/2005 6:43 PM CDT Ralph Souza MD CHEMISTRY ORDERABLES Final Resul t Performing Organization Address [facility] Phone Number INTERFACE SYSTEM Refer to clinic/hospital department * (ABNORMAL) COMPREHENSIVE METABOLIC PANEL (09/08/2005 6:43 PM CDT) Pathologist [facility] GLUCOSE 85 65 - 99 mg/dL INTERFACE SYSTEM Comment:Note: Effective July 06, 2005, reference range now reflects a fasting st ate. CREATININE 1.2 0.4 - 1.2 mg/dL INTERFACE SYSTEM CALCIUM 8.8 8.6 - 10.2 mg/dL INTERFACE SYSTEM ALKALINE PHOSPHATASE 59 35 - 104 U/L INTERFACE SYSTEM AST 28 12 - 32 U/L INTERFACE SYSTEM Comment:Hemolyzed: Result ma y be falsely elevated. ALT 17 0 - 31 U/L INTERFACE SYSTEM TOTAL PROTEIN 7.9 6.3 - 8.6 g/dL INTERFACE SYSTEM ALBUMIN 4.4 3.4 - 4.8 g/dL INTERFACE SYSTEM BILIRUBIN TOTAL 0.4 0.2 - 1.0 mg/dL INTERFACE SYSTEM BUN 16 6 - 20 mg/dL INTERFACE SYSTEM SODIUM 131(L) 135 - 145 mmol/L INTERFACE SYSTEM POTASSIUM 5.8(H) 3.5 - 4.9 mmol/L INTERFACE SYSTEM Comment: Moderate hemolysis present. Can cause significant falsely elevated result. Clinical judgement necessary. Redraw if indicated. CHLORIDE 99 96 - 108 mmol/L INTERFACE SYSTEM CO2 22 22 - 30 mmol/L INTERFACE SYSTEM 09/08/2005 6:43 PM CDT us Ralph Souza MD CHEMISTRY ORDERABLES Final Resul t INTERFACE SYSTEM Refer to clinic/hospital department documented in this encounter Visit Diagnoses Diagnosis Cellulitis and abscess of hand, except fingers and thumb- Primary documented in this encounter Care Teams Bean Viner Relationship Specialty Start Date End Date Marco Ramirez MD [address] [place] [phone] PCP - General Internal Medicine 08/01/23 documented as of this encounter
--- OUTSIDE RECORDS SUMMARY | 2024-07-25 17:19 | XMS_ITS | Encounter Summary ---
Author Organization [facility] Address 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 Primary Care [address] [place] [phone] Marco Ramirez MD [address] [place] [address] [address] [place] [phone] 06/26/2025 11:45 AM CDT Office Visit [facility] Heart and Vascular At [address] [place] [address] Sherman Mantilla MD [address] [facility] [address] [place] [address] documented as of this encounter Visit Diagnoses Not on filedocumented in this encounter Care Teams Water Leak Repairer Relationship Specialty Start Date End Date Marco Ramirez MD [address] [place] [address] PCP - General Internal Medicine 08/01/23 documented as of this encounter
--- OUTSIDE RECORDS SUMMARY | 2024-07-25 17:19 | XMS_ITS | Referral Summary ---
Author Organization [facility] Address [address] [place] [address] Care Team Providers Care Mine Safety Manager Name Role Phone Marco Ramirez MD Primary [...] as well. No other RT/RD on [employer] -- given recent onset and ongoing symptoms, reasonable to proceed with laser retinopexy -- r/b/a discussed of laser treatment v observation and patient elects to proceed. 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 Procedure Note ProviderVazquez MD - 06/22/2012 12:00 AM CDT PROCEDURE REPORT Patient: TERESA MARIN Account: [id number] Room No: : 1955 Patient Type: SDS Attend.: Nicolás Dewey M.D. Admit Date: 06/22/2012 [...] polyps. PHYSICIAN: Nicolás Dewey M.D. INSTRUMENT USED: [employer] video endoscope. MEDICATIONS: Per Anesthesia. FINDINGS: The [...] up with Dr. Sharma. Nicolás Dewey M.D. Wanda TD: 06/23/2012 09:23 CC: Dr. Sharma Authenticated by Nicolás Dewey MD On 06/26/2012 12:57:45 PM Historical Provider ENDOSCOPY PROCEDURES Hilda l Result from Last 3 Months or Most Recently Relevant to Health Maintenance [place] [address] [place] [address] [employer] Care Teams Mine Safety Manager Relationship Specialty Start Date End Date Marco Ramirez MD PCP - General 10/12/16
--- OUTSIDE RECORDS SUMMARY | 2024-07-25 17:19 | XMS_ITS | Encounter Summary ---
Author Organization [facility] Address 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 [facility] [address] [place] [address] documented as of this encounter Visit Diagnoses Not on filedocumented in this encounter Care Teams Wind Energy Systems Installer Relationship Specialty Start Date End Date Marco Ramirez MD [address] [place] [phone] PCP - General Internal Medicine 08/01/23 documented as of this encounter
--- OUTSIDE RECORDS SUMMARY | 2024-07-25 17:19 | XMS_ITS | Clinical Summary ---
Author Organization [facility] Address [address] [place] [address] Care Team Providers Care Clinical Informaticist Name Role Phone Marco Ramirez MD Primary Care Provider [phone] Allergies Active Allergy Reactions Criticality Noted Date Comments Blue Dye Dizziness High 11/26/2022 Blue dye /purple dye food dye makes patient very dizzy Cat Dander Swelling Low 08/10/2017 Crab Nausea and Vomiting Low 08/10/2017 Medications calcium carbonate (TUMS) 400 mg (1,000 mg) Tablet, ChewableIndication s:prn Take by mouth twice weekly. Active cholecalciferol, vitamin D3, (Vitamin D3) 1,000 unit Take 1 Tablet (1,000 Units) by mouth daily. 08/06/19 Active Additional Information Patient not taking.Reported on 06/21/2024 pravastatin (PRAVACHOL) 20 mg tablet TAKE 1 TABLET BY MOUTH EVERY NIGHT AT BEDTIME 30 Tablet 11 08/15/19 21 Active Additional Information Patient not taking.Reported on 05/21/2024 mupirocin (BACTROBAN) 2 % OintmentIndication s:H/O methicillin resistant Staphylococcus aureus Apply to affected area 2 times daily. To open sore extremity 22 Gram 1 08/30/19 21 Active aspirin (ANN) 325 mg tablet Take 325 mg by mouth every 7 days. 11/26/19 21 Active albuterol sulfate 90 mcg/Actuation inhaler Take 2 Puffs by inhalation every 6 hours as needed (URI). 11/26/19 21 Active beta-carotene,A,-v its C,E/mins (OCUVITE ORAL) Take 1 Capsule by mouth every 7 days. Active diclofenac sodium (VOLTAREN) 1 % gelIndications:Kne e pain, unspecified chronicity, unspecified laterality APPLY 2 GRAMS TO AFFECTED AREA 4 TIMES DAILY. RIGHT KNEE 300 Gram 1 01/23/20 22 Active lecithin/calcium/E /soyb/cohosh (ONE-A-DAY MENOPAUSE HEALTH ORAL) Take 1 Capsule by mouth daily. Active pravastatin (PRAVACHOL) 20 mg tablet Take 1 Tablet (20 mg) by mouth daily at bedtime. 100 Tablet 3 08/03/19 24 Active methylPREDNISolone (MEDROL DOSPACK) 4 mg Tablets, Dose Pack As directed 21 Tablet 08/15/19 24 Active Additional Information Patient not taking.Reported on 06/21/2024 triamcinolone acetonide (KENALOG) 0.1 % Cream Apply to affected area 2 times daily. 80 Gram 1 08/15/19 24 Active Additional Information Patient not taking.Reported on 06/21/2024 silver sulfADIAZINE (SILVADENE) 1 % Cream Apply to affected area daily. 50 Gram 1 08/29/19 24 Active Additional Information Patient not taking.Reported on 06/21/2024 levothyroxine 25 mcg tablet Take 1 Tablet (25 mcg) by mouth daily in the morning. 100 Tablet 3 01/09/20 24 Active Active Problems Patient Care Coordination No te Formatting of this note migh t be different from the original. 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 09/09/2003 Mixed hyperlipidemia 09/09/2003 Sensorineural hearing loss, unspecified 09/09/19 04 Esophageal reflux 09/09/2003 Resolved Problems Problem Noted Date Diagnosed Date Resolved Date Alopecia 01/01/2008 03/26/2009 Enlargement of lymph nodes 08/29/2006 1 03/02/2007 Benign neoplasm of skin, site unspecified 06/17/2006 01/01/2008 Pain in limb 01/31/2006 01/01/2008 Cough 01/31/2006 01/01/2008 Cellulitis and abscess of unspecified site 09/07/2005 01/01/2008 Need for prophylactic vaccin ation with tetanus-diphtheria (Td) 09/07/2005 01/01/2008 Other malaise and fatigue 08/11/2005 Abdominal pain, generalized 08/11/2005 01/01/2008 Acute sinusitis, unspecified 04/15/2004 01/01/2008 Rosacea 04/15/2004 01/01/2008 Chest pain, unspecified 11/20/200312/22 Angioneurotic edema not elsewhere classified 4 01/01/2008 Encounters Date Type Department Care Team Description 07/25/[address] [place] [phone] Marco Ramirez MD Clinical Consult Before Scheduling 07/24/2024 External Device Data STL ABSTRACTION Provider, Abstract 07/12/2024 External Device Data [facility] ABSTRACTION Provider, Abstract 07/11/2024 External Device Data [facility] ABSTRACTION Provider, Abstract 07/10/2024 External Device Data STL ABSTRACTION Provider, Abstract 06/21/2024 8:00 AM CDT Office Visit [facility] V[facility] At [address] [place] [address] Marco Ramirez MD Czarnik, Bruce T, MD Syncope and collapse (Primary Dx); Supraventricular tachycardia; Palpitations; Bilateral carotid artery stenosis 06/12/2024 External Device Data STL ABSTRACTION Provider, Abstract 06/09/[address] [place] [phone] Marco Ramirez MD Results 06/06/[address] [place] [phone] Marco Ramirez MD Results 05/31/2024 [facility] [address] [place] [address] Marco Ramirez MD Provider Call 05/23/2024 Abstract [facility] [address] [place] [phone] Marco Ramirez MD 05/22/2024 External Device Data STL ABSTRACTION Provider, Abstract 05/21/2024 9:40 AM CDT Office Visit [facility] [address] [place] [address] Marco Ramirez MD Other specified hypothyroidism (Primary Dx); Statin myopathy (includes myalgia); Mixed hyperlipidemia; Carotid artery plaque, bilateral; Haywood's esophagus without dysplasia; Vitamin D deficiency; Lumbar radiculopathy; Menopause 04/30/2024 External Device Data STL ABSTRACTION Provider, Abstract 04/28/2024 External Device Data STL ABSTRACTION Provider, Abstract 04/27/2024 External Device Data STL ABSTRACTION Provider, Abstract from Last 3 Months Immunizations Immunization Administration Dates Next Due (ADACEL/BOOSTRIX)(10 YR UP) TDAP VACCINE, 0.5ML, IM 12/04/2018,03/01/2008 (IPOL)(6 WKS AND UP) POLIOVI RINA VACCINE, INACTIVATED (IPV), 3 DOSE, SUBCUT OR IM 01/21/2011 (PFIZER)(12 YR UP) COVID-19 VACCINE - EMERGENCY USE AUTHORIZATION, MRNA, [id number](PF) 30 MCG/0.3 ML IM SUSP 06/27/2020,06/06/2020 (PREVNAR 20)(6 WKS UP) PNEUM OCOCCAL CONJUGATE VACCINE 20-VALENT (PCV20), POLYSACCHARIDE [id number] CONJUGATE, ADJUVANT 0.5 ML (PF) IM 08/03/2023 (TDVAX)(7 YRS UP) TETANUS AN D DIPHTHERIA TOXOIDS, ADSORBED (2 LF OF TETANUS TOXOID AND 2 LF OF DIPHTHERIA TOXOID), 0.5ML (PF), IM 09/07/2005 (VIVOTIF)(6 YRS UP) TYPHOID VACCINE, LIVE, 2 BILLION UNIT CAPSULE, ORAL 01/21/2011 Hepatitis A Vaccine 01/21/2011 Hepatitis B Vaccine 10/05/2004,12/17/2003,2003 INFLUENZA VACCINE QUADRIVALE NT 6 MOS UP PF IM 11/03/2020,01/11/2020 Influenza Seasonal Unspecifi ed Formulation IM 03/28/2014,12/22/2010,12/22/2009 Skin Test TB 02/18/2010 Family History Medical History Relation Name Comments Cancer Father esophageal Cancer Paternal Cousin 1 seophageal Cancer Paternal Cousin 2 esophageal Colon Cancer Neg Hx pt not sure abo ut paternal side, 13 siblings, unknown history Relation Name Status Comments Father Paternal Cousin 1 Paternal Cousin 2 Social History Tobacco Use Types Packs/Day Years Used Date Smoking Tobacco: Never Passive Smoke Exposure: Never Smokeless Tobacco: Never Tobacco Cessation:Counseling Given: Not Answered Alcohol Use Standard Drinks/Week Comments Yes 0 (1 standard drink = 0.6 oz pur e alcohol) 4x/year Feeling Safe Answer Date Recorded Are you in a relationship wi th someone who hurts you emotionally and/or physically? No 01/02/2024 Comments No Sex and Gender Information Value Date Recorded Sex Assigned at Not on file Legal Sex Female 3:57 AM SENIOR COUNSEL Gender Identity Not on file Sexual Orientation Not on file Last Filed Vital Signs Vital Sign Reading Time Taken Comments Blood Pressure 114/82 06/21/2024 7:46 AM CDT Pulse 75 06/21/2024 7:46 AM CDT Temperature 35.7 C (96.2 F) 01/02/2024 12:31 PM SENIOR COUNSEL Respiratory Rate 16 01/02/2024 12:51 PM SENIOR COUNSEL Oxygen Saturation 98% 06/21/2024 7:46 AM CDT Inhaled Oxygen Concentration - - Weight 62.2 kg (137 lb 3.2 oz) 06/21/2024 7:46 A M CDT Height 156.2 cm (5' 1.5) 06/21/2024 7:46 AM CDT Body Mass Index 25.5 06/21/2024 7:46 AM CDT Plan of Treatment Upcoming Encounters Date Type Department Care Team (Late st Contact Info) Description 11/27/2024 2:40 PM CDT Office Visit [facility] [place] [address] [address] [facility] [address] [place] [address] Marco Ramirez MD [address] [place] [address] [address] [place] [phone] 06/26/2025 11:45 AM CDT Office Visit [facility] Heart [facility] Vascular At [facility] [address] [place] [address] Sherman Mantilla MD [address] [place] [address] Health Maintenance Due Date Last Done Comments Pre-Diabetes and Diabetes Screening 1955 FIT-DNA Q 3 years 11/04/2000 FIT/FOBT Q 1 year 11/04/2000 Flex Sig/CT Colonography Q 5 years 11/04/2000 ZOSTER VACCINE (1 of 2) 11/04/2005 RSV VACCINE (60+ or ) (1 - Risk 60-74 years 1-dose series) 2015 OSTEOPOROSIS SCREENING 07/07/2021 7, 07/07/2016, 07/07/2016, Additional history exists COVID-19 Vaccine (3 - 2023-2 5 season) 2023 06/27/2020, 06/06/2020 BREAST CANCER SCREENING 08/09/2024 08/10/19 24, 08/10/2023, 08/10/2023, Additional history exists UPPER GI ENDOSCOPY 01/01/2027 01/02/2024, 1 03/08/2020, 08/11/2017, Additional history exists DTAP/TDAP/TD VACCINES (3 - T d or Tdap) 12/04/2028 12/04/2018, 03/01/2008, 09/07/2005 COLORECTAL SCREENING 01/01/2031 01/02/2024, 01/02/2024, 09/19/2017, Additional history exists Colorectal Cancer Screening 01/01/2031 PNEUMOCOCCAL VACCINE 50+ YEARS Completed 08/03/2023 INFLUENZA VACCINE Completed 11/09/2023, , 11/03/2020, Additional history exists Preventative Visit- Commercial Completed 0 05/21/2024, 08/03/2023, 07/15/2021, Additional history exists Procedures Procedure Name Priority Date/Time Associated Diagnosis Comments T4 FREE Routine 06/08/2024 7:54 AM CDT Other specified hypothyroidism CK Routine 06/08/2024 7:54 AM CDT Mixed hyperlipidemia VITAMIN D 25 HYDROXY Routine 06/08/2024 7:54 AM CDT Vitamin D deficiency TSH Routine 06/08/2024 7:54 AM CDT Mixed hyperlipidemia LIPID PANEL Routine 06/08/2024 7:54 AM CDT Mixed hyperlipidemia COMPREHENSIVE METABOLIC PANEL Routine 06/08/2024 7:54 AM CDT Mixed hyperlipidemia CBC WITH DIFFERENTIAL Routine 06/08/2024 7:54 AM CDT Haywood's esophagus without dysplasia HOLTER MONITOR 06/06/2024 8:29 AM CDT COLONOSCOPY REPORT 01/02/2024 1: 49 PM SENIOR COUNSEL MAMMO SCREEN BILAT W OR WO CAD Routine 08/10/2023 12:00 AM CDT Visit for screening mammogram XR DEXA BONE DENSITY AXIAL 1 OR MORE SITES Routine 07/07/2016 Menopause EGD Routine 09/18/2013 from Last 3 Months or Most Recently Relevant to Health Maintenance Results * CBC WITH DIFFERENTIAL (06/08/2024 7:54 AM CDT) WBC 6.7 3.8 - 10.8 Thousand/u L [facility] RBC 4.56 3.80 - 5.10 Million/uL [facility] HEMOGLOBIN 14.0 11.7 - 15.5 g/dL [facility] HEMATOCRIT 42.8 35.0 - 45.0 % [facility] MCV 93.9 80.0 - 100.0 fL [facility] MCH 30.7 27.0 - 33.0 pg [facility] MCHC 32.7 32.0 - 36.0 g/dL [facility] Comment: For adults, a slight decrease in the calculated MCHC value (in the range of 30 to 32 g/dL) is most likely not clinically significant; however, it should be interpreted with caution in correlation with other red cell parameters and the patient's clinical condition. RDW 12.9 11.0 - 15.0 % [facility] PLATELETS 259 140 - 400 Thousand/u L [facility] MPV 9.8 7.5 - 12.5 fL [facility] NEUTROPHIL ABSOLUTE 3,933 1,500 - 7,800 cells/uL [facility] LYMPHOCYTE ABSOLUTE 1,896 850 - 3,900 cells/uL [facility] MONOCYTE ABSOLUTE 697 200 - 950 cells/uL [facility] EOSINOPHIL ABSOLUTE 147 15 - 500 cells/uL [facility] BASOPHILS ABSOLUTE 27 0 - 200 cells/uL [facility] NEUTROPHIL 58.7 % [facility] LYMPHOCYTES 28.3 % [facility] MONOCYTE 10.4 % [facility] EOSINOPHILS 2.2 % [facility] BASOPHILS 0.4 % [facility] Comment: FASTING:YES FASTING: YES Test Performed at: [facility] [address] [place] [address] Raiza Hook MD Blood 06/08/2024 7:54 AM CDT 06/08/2024 7:54 AM CDT us Marco Ramirez MD HEMATOLOGY ORDERABLES Final R esult [facility] [phone] [facility] [address] [place] [address] * (ABNORMAL) VITAMIN D 25 HYDROXY (06/08/2024 7:54 AM CDT) VITAMIN D, 25 OH, TOTAL 27(L) 30 - 100 ng/mL [facility] Comment: Vitamin D Status 25-OH Vitamin D: Deficiency: <20 ng/mL Insufficiency: 20 - 29 ng/mL Optimal: > or = 30 ng/mL For 25-OH Vitamin D testing on patients on D2-supplementation and patients for whom quantitation of D2 and D3 fractions is required, the [facility]TM) 25-OH VIT D, (D2,D3), LC/MS/MS is recommended: order code 35637 (patients >2yrs). See Note 1 Note 1 For additional information, please refer to http://education.GoChongo/faq/DXH465 (This link is being provided for informational/ educational purposes only.) FASTING:YES FASTING: YES Test Performed at: [facility] [place] [address] Raiza Hook MD Blood 06/08/2024 7:54 AM CDT 06/08/2024 7:54 AM CDT us Marco Ramirez MD CHEMISTRY ORDERABLES Final Re sult [facility] [phone] [facility] [address] * TSH (06/08/2024 7:54 AM CDT) Pathologist [facility] TSH 2.75 0.40 - 4.50 mIU/L [facility] Comment: Test Performed at: [facility] [address] [place] [address] Raiza Hook MD Blood 06/08/2024 7:54 AM CDT 06/08/2024 7:54 AM CDT us Marco Ramirez MD CHEMISTRY ORDERABLES Final Re sult [facility] [phone] [facility] [address] * T4 FREE (06/08/2024 7:54 AM CDT) T4 FREE 1.2 0.8 - 1.8 ng/dL [facility] Comment: Test Performed at: [facility] [address] [facility] [place] [address] Raiza Hook MD Blood 06/08/2024 7:54 AM CDT 06/08/2024 7:54 AM CDT Marco Ramirez MD CHEMISTRY ORDERABLES Final Re sult Performing Organization Address [facility] Co de Phone Number [facility] [phone] [facility] [address] [place] [address] * CK (06/08/2024 7:54 AM CDT) Pathologist [facility] CK 79 20 - 243 U/L [facility] Comment: FASTING:YES FASTING: YES Test Performed at: [facility] [address] Raiza Hook MD Blood 06/08/2024 7:54 AM CDT 06/08/2024 7:54 AM CDT Marco Rmairez MD CHEMISTRY ORDERABLES Final Re sult Performing Organization Address [facility] Co de Phone Number [facility] [phone] [facility] [address] [place] [address] * (ABNORMAL) LIPID PANEL (06/08/2024 7:54 AM CDT) CHOLESTEROL 253(H) <200 mg/dL [facility] HDL 54 > OR = 50 mg/dL [facility] TRIGLYCERIDE 152(H) <150 mg/dL [facility] LDL CALCULATED 169(H) mg/dL (calc) [facility] Comment: Reference range: <100 Desirable range <100 mg/dL for primary prevention; <70 mg/dL for patients with CHD or diabetic patients with > or = 2 CHD risk factors. LDL-C is now calculated using the Robyn calculation, which is a validated novel method providing better accuracy than the Friedewald equation in the estimation of LDL-C. Venkatesh SS et al. CHANDA. 2013;310(19): 4954-2277 (http://education.GoChongo/faq/BXF963) CHOL/HDL RATIO 4.7 <5.0 (calc) [facility] NON-HDL CHOLESTEROL 199(H) <130 mg/dL (calc) [facility] Comment: For patients with diabetes plus 1 major ASCVD risk factor, treating to a non-HDL-C goal of <100 mg/dL (LDL-C of <70 mg/dL) is considered a therapeutic option. Test Performed at: [facility] [address] [facility] [place] [address] Raiza Hook MD Blood 06/08/2024 7:54 AM CDT 06/08/2024 7:54 AM CDT us Marco Ramirez MD CHEMISTRY ORDERABLES Final Re sult [facility] [phone] [facility] [address] [place] [address] * COMPREHENSIVE METABOLIC PANEL (06/08/2024 7:54 AM CDT) GLUCOSE 98 65 - 99 mg/dL [facility] Comment: Fasting reference interval BUN 13 7 - 25 mg/dL [facility] CREATININE 0.91 0.50 - 1.05 mg/dL [facility] EGFR 69 > OR = 60 mL/min/1. 73m2 [facility] BUN/CREAT RATIO SEE NOTE: 6 - 22 (calc) [facility] Comment: Not Reported: BUN and Creatinine are within reference range. SODIUM 139 135 - 146 mmol/L [facility] POTASSIUM 4.5 3.5 - 5.3 mmol/L [facility] CHLORIDE 104 98 - 110 mmol/L [facility] CO2 30 20 - 32 mmol/L [facility] CALCIUM 9.4 8.6 - 10.4 mg/dL [facility] TOTAL PROTEIN 6.9 6.1 - 8.1 g/dL [facility] ALBUMIN 4.6 3.6 - 5.1 g/dL [facility] GLOBULIN 2.3 1.9 - 3.7 g/dL (calc) [facility] ALBUMIN/GLOBULIN RATIO 2.0 1.0 - 2.5 (calc) [facility] BILIRUBIN TOTAL 0.5 0.2 - 1.2 mg/dL [facility] ALKALINE PHOSPHATASE 51 37 - 153 U/L [facility] AST 16 10 - 35 U/L [facility] ALT 13 6 - 29 U/L [facility] Comment: Test Performed at: [facility] [address] [place] [address] Raiza Hook MD Blood 06/08/2024 7:54 AM CDT 06/08/2024 7:54 AM CDT us Marco Ramirez MD CHEMISTRY ORDERABLES Final Re sult [facility] [phone] [facility] [address] [place] [address] * HOLTER MONITOR (06/06/2024 8:29 AM CDT) Narrative Procedure Note Sherman Mantilla MD - 06/06/2024 8:29 AM CDT [place], [place] [address] Assistant Bookkeeper Report CSN: [id number] DATE OF SERVICE: 01/03/2024 INTERPRETATION The patient was monitored from January 02 to January 05, 2024 for 48hours. The underlying rhythm was sinus, heart rates ranged 47 to 160,average 64 beats per minute. There were 307 single PACs. There were 6 short episodes of SVT rangingfrom 3 beats to 11 beats at 160 beats per minute. These appear to beasymptomatic. There were 499 single PVCs. There were no pauses greater than 2.0 seconds. The patient complained of heart fluttering/racing correlating to artifactand sinus rhythm at 77 beats per minute, shortness of breath/heartfluttering correlates to sinus bradycardia at 51 beats per minute,shortness of breath during exercise correlates to sinus rhythm at 83 beatsper minute and heart skipping/pounding correlates to sinus rhythm at 72beats per minute. BTC:MEDQ DID:[id number] Dictated by: Sherman Mantilla MD CC: Marco Ramirez MD us Sherman Mantilla MD CARDIAC SERVICES ORDERABLES F inal Result [facility] CLIA# [id number] [address] [place] [address] * COLONOSCOPY REPORT (01/02/2024 1:49 PM SENIOR COUNSEL) Narrative Procedure Note Taiwo Saldana MD - 01/02/2024 1:49 PM CST [facility] Endoscopy Patient Name: Shell Marin Procedure Date: 01/02/2024 Date of : 1955 Attending MD: Taiwo Saldana MD, Procedure: Colonoscopy Indications: Previous history of colon polyps greater than 10 years ago. Histology unknown. Colonoscopy 5 years ago without polyps identified. Providers: Taiwo Saldana MD Referring MD: Marco Ramirez MD Medicines: Propofol per Anesthesia Complications: No immediate complications. Procedure: Informed consent was obtained for the procedure, including moderate sedation after risks were discussed. Based on the pre-procedure assessment, including review of the patient's medical history, medications, allergies, and review of systems, the patient was deemed to be an appropriate candidate for sedation. A timeout was performed. Continuous ECG monitoring, pulse oximetry, blood pressure monitoring, and direct observation were performed. The Colonoscope was introduced through the anus and advanced to the cecum, identified by appendiceal orifice and ileocecal valve. The colonoscopy was performed without difficulty. The patient tolerated the procedure well. The quality of the bowel preparation was good. Estimated Blood Loss: Estimated blood loss: none. Findings: The colonic mucosa was without erythema or ulceration. There were scattered left-sided diverticulum. The colon prep was good. On withdrawal there were no appreciable polypoid lesions or areas mucosal change to suggest adenomatous tissue. Retroflexion showed internal hemorrhoids. Impression: Normal colonoscopy to the cecum without polyps in the setting of good prep. Left-sided diverticulosis. Recommendation: For colon polyp surveillance/colon cancer screening consider follow-up colonoscopy in 7 to 10 years Taiwo Saldana MD 01/02/2024 1:49:23 PM This report has been signed electronically. Number of Addenda: [address]; [place] [address] Taiwo Saldana MD GI PROCEDURE ORDERABLES Hilda l Result * MAMMO SCREEN BILAT W OR WO CAD (08/10/2023 12:00 AM CDT) Anatomical Region Laterality Modality Breast Bilateral Mammography Marco Ramirez MD MAMMO ORDERABLES Final Result * XR DEXA BONE DENSITY AXIAL 1 OR MORE SITES (07/07/2016) Anatomical Region Laterality Modality Other Marco Ramirez MD DIAGNOSTIC IMAGING ORDERABLES Final Result * EGD (09/18/2013) Abstract Provider GI PROCEDURE ORDERABLES Final Result [facility] from Last 3 Months or Most Recently Relevant to Health Maintenance Insurance [facility] OPEN ACCESS HMO [facility] OPEN ACCESS O MEDICARE PART A AND B Advance Directives For more information, please contact: [phone] * Full Code (Latest Code Status on File) Date Activated Date Inactivated Comments 01/02/2024 10:58 AM 01/02/2024 3:16 PM * Full Code Date Activated Date Inactivated Comments 08/15/2017 6:44 AM 08/15/2017 12:14 PM * Full Code Date Activated Date Inactivated Comments 08/15/2017 5:45 AM 08/15/2017 6:44 AM * Full Code Date Activated Date Inactivated Comments 08/11/2017 12:27 PM 08/11/2017 5:47 PM Care Teams Clinical Informaticist Relationship Specialty Start Date End Date Marco Ramirez MD [address] [place] [address] PCP - General Internal Medicine 08/01/23
--- OUTSIDE RECORDS SUMMARY | 2024-07-25 17:19 | XMS_ITS | Encounter Summary ---
Author Organization [facility] Address [address] [place] [address] Care Team Providers Care Narrow Fabric Loom Fixer Name Role Phone Marco Ramirez MD Primary Care Provider [phone] Encounter Details Date Type Department Care Team (Late Contact Info) Description 10/10/2008 Outpatient Historical [facility] Paddy Spears MD [address] [address] Esophageal Reflux Social History Tobacco Use Types Packs/Day Years Used Date Smoking Tobacco: Never Alcohol Use Standard Drinks/Week Comments No 0 (1 standard drink = 0.6 oz pur e alcohol) Comments No Sex and Gender Information Value Date Recorded Sex Assigned at Not on file Legal Sex Female 3:57 AM HOGSHEAD WRECKER Gender Identity Not on file Sexual Orientation Not on file documented as of this encounter Plan of Treatment Upcoming Encounters Date Type Department Care Team ([facility] Contact Info) Description 11/27/2024 2:40 PM CDT Office Visit [facility] Primary Care [address] [place] [address] Marco Ramirez MD [address] [place] [address] [address] [place] [address] 06/26/2025 11:45 AM CDT Office Visit [facility] Heart and Vascular At [address] [place] [address] Sherman Mantilla MD [address] [facility] 2014 [place] [address] documented as of this encounter Visit Diagnoses Diagnosis Esophageal reflux documented in this encounter Care Teams Narrow Fabric Loom Fixer Relationship Specialty Start Date End Date Marco Ramirez MD [address] [place] [address] PCP - General Internal Medicine 08/01/23 documented as of this encounter
--- OUTSIDE RECORDS SUMMARY | 2024-07-25 17:19 | XMS_ITS | Encounter Summary ---
Author Organization [facility] Address [address] [place] [address] Care Team Providers Care Restaurant Culinary Manager Name Role Phone Marco Ramirez MD Primary Care Provider [phone] Encounter Details Date Type Department Care Team (Late Contact Info) Description 12/13/2006 Outpatient Historical [facility] Internal Medicine [address] [phone] Marco Ramirez MD [address] [place] [address] [address] [place] [address] Social History Tobacco Use Types Packs/Day Years Used Date Smoking Tobacco: Never Assessed Comments Unknown Sex and Gender Information Value Date Recorded Sex Assigned at Not on file Legal Sex Female 3:57 AM SHARK BIOLOGIST Gender Identity Not on file Sexual Orientation Not on file documented as of this encounter Last Filed Vital Signs Vital Sign Reading Time Taken Comments Blood Pressure 128/86 12/13/2006 1:30 PM CDT Pulse - - Temperature - - Respiratory Rate - - Oxygen Saturation - - Inhaled Oxygen Concentration - - Weight 68 kg (150 lb) 12/13/2006 1:30 PM CDT Height - - Body Mass Index - - documented in this encounter Plan of Treatment Upcoming Encounters Date Type Department Care Team (Late Contact Info) Description 11/27/2024 2:40 PM CDT Office Visit [facility] Primary Care [address] [place] [address] Marco Ramirez MD [address] [place] [address] [address] [place] [address] 06/26/2025 11:45 AM CDT Office Visit [facility] Heart and Vascular At [facility] [address] [facility] 2014 [place] [address] Sherman Mantilla MD [address] [facility] 2014 [place] [address] documented as of this encounter Visit Diagnoses Not on filedocumented in this encounter Care Teams Restaurant Culinary Manager Relationship Specialty Start Date End Date Marco Ramirez MD [address] [place] [address] [address] [place] [phone] PCP - General Internal Medicine 08/01/23 documented as of this encounter
--- OUTSIDE RECORDS SUMMARY | 2024-07-25 17:19 | XMS_ITS | Encounter Summary ---
Author Organization [facility] Address [address] [place] [address] Care Team Providers Care Carpenter Assistant Name Role Phone Marco Ramirez MD Primary Care Provider [phone] Encounter Details Date Type Department Care Team (Late Contact Info) Description 08/29/2006 Outpatient Historical [facility] Internal Medicine [address] [address] Marco Ramirez MD [address] [place] [address] [address] [place] [address] Social History Tobacco Use Types Packs/Day Years Used Date Smoking Tobacco: Never Assessed Comments Unknown Sex and Gender Information Value Date Recorded Sex Assigned at Not on file 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 Gender Identity Not on file Sexual Orientation Not on file documented as of this encounter Last Filed Vital Signs Vital Sign Reading Time Taken Comments Blood Pressure 120/80 08/29/2006 9:00 AM CDT Pulse - - Temperature - - Respiratory Rate - - Oxygen Saturation - - Inhaled Oxygen Concentration - - Weight 65.3 kg (144 lb) 08/29/2006 9:00 AM CDT Height - - Body Mass Index - - documented in this encounter Plan of Treatment Upcoming Encounters Date Type Department Care Team (Late Contact Info) Description 11/27/2024 2:40 PM CDT Office Visit [facility] Primary Care [address] [place] [address] Marco Ramirez MD [address] [place] [address] [address] [place] [address] 06/26/2025 11:45 AM CDT Office Visit [facility] Heart and Vascular At [facility] [address] [facility] 2014 [place] [address] Sherman Mantilla MD [facility] 2014 [place] [address] documented as of this encounter Visit Diagnoses Not on filedocumented in this encounter Care Teams Carpenter Assistant Relationship Specialty Start Date End Date Marco Ramirez MD [address] [place] [phone] PCP - General Internal Medicine 08/01/23 documented as of this encounter
--- OUTSIDE RECORDS SUMMARY | 2024-07-25 17:19 | XMS_ITS | Encounter Summary ---
Author Organization [facility] Address 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 Gender Identity Not on file Sexual Orientation Not on file documented as of this encounter Last Filed Vital Signs Vital Sign Reading Time Taken Comments Blood Pressure 120/70 06/17/2006 1:15 PM CDT Pulse - - Temperature 36.8 C (98.2 F) 06/17/2006 1:15 PM CDT Respiratory Rate - - Oxygen Saturation - - Inhaled Oxygen Concentration - - Weight 67.1 kg (148 lb) 06/17/2006 1:15 PM CDT Height - - Body Mass Index - - documented in this encounter Plan of Treatment Upcoming Encounters Date Type Department Care Team (Late Contact Info) Description 11/27/2024 2:40 PM CDT Office Visit [facility] Primary Care [address] [place] [address] Marco Ramirez MD [address] [place] [address] [address] [place] [phone] 06/26/2025 11:45 AM CDT Office Visit [facility] Heart and Vascular At [facility] [address] [facility] [address] [place] [address] Sherman Mantilla MD [address] [facility]Note 2] 2014 [place] [address] documented as of this encounter Visit Diagnoses Not on filedocumented in this encounter Care Teams Vp Of Technology Relationship Specialty Start Date End Date Maroc Ramirez MD [address] [place] [address] [address] [place] [phone] PCP - General Internal Medicine 08/01/23 documented as of this encounter
--- OUTSIDE RECORDS SUMMARY | 2024-07-25 17:19 | XMS_ITS | Encounter Summary ---
Author Organization [facility] Address [address] [place] [address] Care Team Providers Care Coat Maker Name Role Phone Marco Ramirez MD Primary Care Provider [phone] Reason for Visit * Reason Comments Needs Orders Written Encounter Details Date Type Department Care Team (Late st Contact Info) Description 08/01/2023 Telephone [facility] Primary Care [address] [place] [address] Marco Ramirez MD [address] [facility] [address] [place] [address] Needs Orders Written Social History Tobacco Use Types Packs/Day Years Used Date Smoking Tobacco: Never Smokeless Tobacco: Never Alcohol Use Standard Drinks/Week Comments Yes 0 (1 standard drink = 0.6 oz pur e alcohol) 4x/year Comments No Sex and Gender Information Value Date Recorded Sex Assigned at Not on file 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 Topic: CPA Information Request - Order or Referral Request >> Aug 01, 2023 1:45 PM Taylor Liang wrote: Caller is requesting: New Lab Bevel Operator Name: Shell Marin Patient/Caregiver Callback Number: [phone] (home) Order: Labs Reason for Request: Routine documented in this encounter Plan of Treatment Upcoming Encounters Date Type Department Care Team (Late st Contact Info) Description 11/27/2024 2:40 PM CDT Office Visit [facility] Primary Care [address] [place] [address] Marco Raimrez MD [address] [place] [address] [address] [place] [address] 06/26/2025 11:45 AM CDT Office Visit [facility] Heart and Vascular At [facility] [address] [facility] 2014 [place] [phone] Sherman Mantilla MD [address] [facility] 2014 [place] [address] documented as of this encounter Visit Diagnoses Not on filedocumented in this encounter Care Teams Coat Maker Relationship Specialty Start Date End Date Marco Ramirez MD [address] [place] [address] [address] [place] [address] PCP - General Internal Medicine 08/01/23 documented as of this encounter
--- OUTSIDE RECORDS SUMMARY | 2024-07-25 17:19 | XMS_ITS | Data Portability ---
Author Organization [employer], Main Office Address [address] [place] [address] Care Team Providers Care Predatory Animal Trapper Name Role Phone JOSIE PINEDA Primary Care Provider Assessment No assessment recorded. Plan of Treatment Reminders Order Date Submit Date Provider Last Modified By Organization Details Last Modified Time Details Appointments None record ed. Lab None record ed. Referral None record ed. Procedures None record ed. Surgeries None record ed. Imaging None record ed. Medication Orders None record ed. Patient TargetsNo targets recorded. Patient InstructionsNo instructions recorded. Reason for Referral None Reported. Results Created Date Observation Date Name Description Value Unit Range Abnormal Flag Note LastModifiedBy Organization Detail LastModifiedTime 03/25/19 24 speec h thera py refer ral No observ ation record ed. [email or web address] [facility] [address] [place], [address], 04/27/2023 09:17:10 Result Notes None recorded. 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 Procedures Surgical History Date Name Laterality Status Provider Name and Address Organization Details Recorded Time Laryngoscopy with biopsy completed SOLOMON Baker [facility] [employer] 02/07/2023 10:21:22 Imaging Results None recorded. Procedure Notes None recorded. Medical Equipment None Reported. Allergies No known drug allergies Medications Name Sig Start Date Stop Date Status Note LastModified by Organization Details LastModified Time azithromyci n 250 mg tablet 02/23 completed Not Available Not Available Not Available benzonatate 100 mg capsule 02/23 completed Not Available Not Available Not Available albuterol sulfate HFA 90 mcg/actuati on aerosol inhaler TAKE 1 PUFF BY INHALATIO N ROUTE EVERY 6 HOURS NEEDED FOR COUGH active Not Available Not Available No t Available cefdinir 300 mg capsule TAKE 2 CAPSULES BY MOUTH DAILY FOR 10 DAYS 02/23 completed Not Available Not Available Not Available fluticasone propionate 50 mcg/actuati on nasal spray,suspe nsion ADMINISTE R 1 SPRAY IN EACH NOSTRIL DAILY DIRECTED active Not Available Not Available No t Available multivitami n active Not Available Not Available Not Available Vitals Date Recorded Body weight Body mass index (BMI) Body height Body temperature Provider Name and Address Organization Details Last Updated DateTime 02/23/2023 36420.6 g 24.4 kg/m2 156.21 cm 97.8 [degF] Marni Mccullough RN [facility] [employer] 02/23/2023 15:29:19 Social History None recorded. Functional Status Question Answer Note LastModified by Organization D etails LastModified Time What is your level of alcohol consumption? None [email or web address] Information not available 02/07/2023 Mental Status None recorded. Family History Relationship Description Onset Age of this Age Resolved Age Notes LastModified by Organization Details LastModified Time Father Family history of cancer of the esophagus age 65 [email or web address] Not available 02/07/2023 10:20:31 Medical History Condition Response MRSA N BACK INJECTIONS N ALLERGIES/HAYFEVER N LUNG DISEASE/DISORDER N INSOMNIA N HISTORY OF DRUG ABUSE N ESRD N RADIATION / CHEMOTHERAPY N COPD N HIGH CHOLESTEROL / HYPERLIPIDEMIA N HYPERTHYROIDISM N PVD N BLOOD DISEASES N EAR OR HEARING PROBLEMS N HYPOTHYROIDISM N SHINGLES N DEPRESSION (INCLUDING POST ) N BACK / NECK PROBLEMS N HAVE YOU BEEN HOSPITALIZED OR SEEN IN E ER IN THE PAST YEAR ? N FAILED BACK SYNDROME N STROKE/TIA N POLYCYSTIC OVARIES N OBESITY N HISTORY WITH COMPLICATIONS WITH ANESTHES IA ? N ANEURYSM N Do you have Advance directive? N USE OF BLOOD THINNERS N NO SIGNIFICANT PAST MEDICAL HISTORY N DIABETES, TYPE N VON WILLIBRAND'S DISEASE N PARATHYROID DISEASE N ENT Y SEASONAL ALLERGIES N HEARTBURN / REFLUX N POST LAMINECTOMY SYNDROME N HEPATITIS / LIVER DISEASE N SLEEP DISORDER N ARTERIAL INSUFFICIENCY N SEIZURES/EPILEPSY N HEADACHES/MIGRAINES N CHF N PACEMAKER N DIZZINESS N HEART DISEASE/HEART PROBLEMS Y AIDS/HIV N NEUROPSYCHOLOGICAL N HYPERTENSION N CANCER: SPECIFY N TOURETTE'S N BLOOD TRANSFUSION N ANESTHESIA COMPLICATIONS N ANEMIA/BLOOD DISORDER N CHRONIC EAR INFECTIONS N ATRIAL FIBRILLATION N AUTOIMMUNE DISEASE N TUBERCULOSIS N Gynecological HistoryNo gynecological history recorded. Obstetrics History GPAL:G 0 P 0 0 0 0 Past Encounters Encounter ID Performer Location Encounter Start Date Encounter Closed Date Diagnosis/Indication Diagnosis SNOMED-CT Code Diagnosis ICD10 Code Diagnosis Note [id number] Alan Jha MD [facility] [place] [address] [place] [address] 02/23/2023 15:15:50 02/23/2023 15:56:26 Singers' nodes 10761789 J38.2 Bilateral tinnitus [address] 102 H93.13 Health Concerns Section Related Observation LastModified by Organization Detai ls LastModified Time None Recorded Concern Status LastModified by Organization Details LastModified Time None Recorded Advance Directives Directive None Recorded Payers Encounter Date Sequence Insurance Name Policy Number Policy Christopher Covered Member ID Christopher Member ID Guarantor Name 02/23/2023 1 [facility] ([facility] [id number] Shell Marin [id number] Shell Marin Notes Date Note Type Note Provider Name and Address Organization Details Recorded Time 02/23/2023 text/html this patient reports a six-month history of hoarseness. She had vocal cord polyps biopsied in 2018. She is a nonsmoker. Her father had esophageal cancer. She does have GERD and she stopped using omeprazole. She also reports decreased hearing and we will get a hearing test on her. Alan Jha MD [address] [place] [address], [facility] [address], [place], [address], [facility] [employer] 02/23/2023 15:51:42 OBGyn Episode No OBEpisode recorded.
--- OUTSIDE RECORDS SUMMARY | 2024-07-25 17:19 | XMS_ITS | Encounter Summary ---
Author Organization [facility] Address [address] [place] [address] Care Team Providers Care Talent Acquisition Administrator Name Role Phone Marco Ramirez MD Primary Care Provider [phone] Encounter Details Date Type Department Care Team (Late st Contact Info) Description 01/18/2018 Lab Requisition [facility] Care DermPath Lab [address] [place] [address] Ricardo Jackson MD [address] [place] [address] Social History Tobacco Use Types Packs/Day Years Used Date Smoking Tobacco: Never Assessed Comments No Sex and Gender Information Value Date Recorded Sex Assigned at Not on file Legal Sex 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 Gender Identity Not on file Sexual Orientation Not on file documented as of this encounter Plan of Treatment Not on file documented as of this encounter Procedures Procedure Name Priority Date/Time Associated Diagnosis Comments DERMATOPATHOLOGY Routine 01/17/2018 12:0 0 AM RAILCAR FOREMAN documented in this encounter Results * DERMATOPATHOLOGY (01/17/2018 12:00 AM RAILCAR FOREMAN) Case Report Dermatopathology Report Case: [id number] Authorizing Provider: Ricardo Jackson MD Collected: 01/17/2018 12:00 AM Pathologist: Shirley Faulkner MD Received: 01/18/2018 11:33 AM Specimen: Skin, left lateral superior hip 8 5:24 PM RAILCAR FOREMAN DERMATOPATHOLOGY LABORATORY Final Diagnosis Specimen A. 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 Check margins 8 5:24 PM [facility] DERMATOPATHOLOGY LABORATORY Gross Description Specimen A: Received is one formalin filled container labeled with the patients name and designated left lateral superior hip. The specimen consists of a shave removal measuring 15x9x1 mm. Jar 0. 8 5:24 PM [facility] DERMATOPATHOLOGY LABORATORY Microscopic Description Specimen A. SKIN, left lateral superior hip: There are nests of melanocytes at the dermal-epidermal junction and within the dermis. This lesion is not present at the sampled margin of the specimen. 8 5:24 PM [facility] DERMATOPATHOLOGY LABORATORY Disclaimer An external and internal positive and negative controls are appropriate for the histochemical, immunohistochemical and immunofluorescence stain(s) in this case (if any), except where stated explicitly. The performance characteristics of the stain(s) cited in this report were developed and its performance characteristic determined by the Dermatopathology Laboratory at [facility]. These tests need not be, and therefore are not, approved by the [place] Food and Drug Administration. The tests are used for clinical purposes. Billing Codes Specimen Charges Stain Charges 21027 1 8 5:24 PM [facility] DERMATOPATHOLOGY LABORATORY Embedded Images 8 5:24 PM [facility] DERMATOPATHOLOGY LABORATORY Pathology/Cytolog y TISSUE SPECIMEN FROM SKIN / Unknown 01/17/2018 01/18/2018 11:33 AM [facility] us Ricardo Jackson MD LAB - PATHOLOGY/CYTOLOGY ORD ERABLES Final Result DERMATOPATHOLOGY LABORATORY [facility] - Department of Dermatology [address] [facility] [place] [address], [facility] [phone] documented in this encounter Visit Diagnoses Not on filedocumented in this encounter Care Teams Talent Acquisition Administrator Relationship Specialty Start Date End Date Marco Ramirez MD PCP - General Internal Medicine 11/21/12 documented as of this encounter
--- OUTSIDE RECORDS SUMMARY | 2024-07-25 17:19 | XMS_ITS | Encounter Summary ---
Author Organization [facility] Address [address] [place] [address] Care Team Providers Care Cardiopulmonary Physical Therapist Name Role Phone Marco Ramirez MD Primary Care Provider Encounter Details Date Type Department Care Team (Late Contact Info) Description 09/08/2005 Outpatient Historical [facility] Internal Medicine [address] [address] Marco Ramirez MD [address] [place] [address] [address] [place] [address] Social History Tobacco Use Types Packs/Day Years Used Date Smoking Tobacco: Never Assessed Comments Unknown Sex and Gender Information Value Date Recorded Sex Assigned at Not on file 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 [facility] [address] [place] [address] documented as of this encounter Visit Diagnoses Not on filedocumented in this encounter Care Teams Cardiopulmonary Physical Therapist Relationship Specialty Start Date End Date Marco Ramirez MD [address] [place] [address] PCP - General Internal Medicine 08/01/23 documented as of this encounter
--- OUTSIDE RECORDS SUMMARY | 2024-07-25 17:19 | XMS_ITS | Encounter Summary ---
Author Organization [facility] Address [address] [place] [address] Care Team Providers Care Bank Sales And Service Manager Name Role Phone Marco Ramirez MD Primary Care Provider [phone] Reason for Visit * Reason Comments Clinical Consult Before Scheduling Encounter Details Date Type Department Care Team (Late st Contact Info) Description 12/27/2023 Telephone [facility] Primary Care [address] [place] [address] Marco Ramirez MD [address] [facility] [address] [place] [address] Clinical Consult Before Scheduling Social History Tobacco Use Types Packs/Day Years Used Date Smoking Tobacco: Never Passive Smoke Exposure: Never Smokeless Tobacco: Never Alcohol Use Standard Drinks/Week Comments Yes 0 (1 standard drink = 0.6 oz pur e alcohol) 4x/year Feeling Safe Answer Date Recorded Are you in a relationship wi th someone who hurts you emotionally and/or physically? No 12/27/2023 Comments No Sex and Gender Information Value Date Recorded Sex Assigned at Not on file Legal Sex Female 3:57 AM QUARRY SUPERVISOR DIMENSION STONE Gender Identity Not on file Sexual Orientation Not on file documented as of this encounter Miscellaneous Notes * Telephone Encounter - Pam Cornejo LPN - 12/28/2023 9:55 AM CST fyi RY SUPERVISOR DIMENSION STONE * Telephone Encounter - Jennifer Perez - 12/27/2023 4:44 PM CST Copied from [facility] #[id number]. Topic: Symptomatic Care >> Dec 27, 2023 4:40 PM Jennifer Dickerson wrote: Caller has new symptoms and is seeking care. Age Range/Symptom: Adult: 18+ - Fainting, passing out, vertigo, dizziness, feeling of nearly passing out, loss of balance - new onset Caller Name:Shell Marin Callback Number: [phone] (home) Call Notes: Caller stated she went to the [employer] with her family and became dizzy slid down to the floor sat for 15 mins before getting up. She stated she will go to a urgent care or ER and will contact the office in the morning for an appointment. {Patient Access Instructions Verify in Consumer View if the Clinic offers Walk In hours. If no walk in hours or patient prefers to schedule, then schedule appointment within 24 hours with Clinic. Search Team based scheduling for SAME DAY [166] Search Team based scheduling for OFFICE VISIT ESTABLISHED [130] Search Team based scheduling for VIDEO VISIT [304] Was walk in/schedule recommendation accepted and completed? No What community is the patient in? [place] Recommend [facility] or Urgent Care. Was [facility]/Urgent Care recommendation accepted? Yes 1. Provide nearest [facility] or Urgent Care Location. 2. Select [employer] Reason and Click Close CRM. RY SUPERVISOR DIMENSION STONE documented in this encounter Plan of Treatment Upcoming Encounters Date Type Department Care Team (Late st Contact Info) Description 11/27/2024 2:40 PM CDT Office Visit [facility] Primary Care [address] [place] [address] Marco Ramirez MD [address] [place] [address] [address] [place] [address] 06/26/2025 11:45 AM CDT Office Visit [facility] Heart and Vascular At [facility] [address] [facility] [address] [place] [address] Sherman Mantilla MD [address] [facility] [address] [place] [phone] documented as of this encounter Visit Diagnoses Not on filedocumented in this encounter Additional Health Concerns Assessment Noted Time PHQ-9 Depression Total Score: 2 08/03/19 24 1:21 PM CDT documented as of this encounter Care Teams Bank Sales And Service Manager Relationship Specialty Start Date End Date Marco Ramirez MD [address] [place] [phone] PCP - General Internal Medicine 08/01/23 documented as of this encounter
--- OUTSIDE RECORDS SUMMARY | 2024-07-25 17:20 | XMS_ITS | Encounter Summary ---
Author Organization [facility] Address [address] [place] [address] Care Team Providers Care Segment Producer Name Role Phone Marco Ramirez MD Primary Care Provider [phone] Reason for Visit * Reason Onset Date Comments new PCP 11/30/2022 Encounter Details Date Type Department Care Team (Late st Contact Info) Description 11/30/[address] 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 Ramirez * Telephone Encounter - Isaac Franks - 11/30/2022 1:59 PM CDT Provider: Marco Ramirez MD Next office visit: Visit date not found Caller: Shell Marin Message: Patient returned call from office to make appointment. Patient has moved to [place] and has chosena doctor that's closer to her home Call-back Number: Shell [phone] documented in this encounter Plan of Treatment Upcoming Encounters Date Type Department Care Team (Late st Contact Info) Description 11/27/2024 2:40 PM CDT Office Visit [facility] Primary Care [address] [place] [address] Marco Ramirez MD [address] [place] [address] [place] [address] [place] [address] 06/26/2025 11:45 AM CDT Office Visit [facility] Heart and Vascular At [facility] [address] [facility] [address] [place] [address] Sherman Mantilla MD [address] [facility] [address] [place] [address] documented as of this encounter Visit Diagnoses Not on filedocumented in this encounter Care Teams Segment Producer Relationship Specialty Start Date End Date Marco Ramirez MD [address] [place] [address] [place] [address] [place] [phone] PCP - General Internal Medicine 08/01/23 documented as of this encounter
--- OUTSIDE RECORDS SUMMARY | 2024-07-25 17:20 | XMS_ITS | Encounter Summary ---
Author Organization [facility] Address 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 [facility] [address] [place] [address] documented as of this encounter Visit Diagnoses Not on filedocumented in this encounter Care Teams Home Designer Relationship Specialty Start Date End Date Marco Ramirez MD [address] [place] [address] PCP - General Internal Medicine 08/01/23 documented as of this encounter
--- OUTSIDE RECORDS SUMMARY | 2024-07-25 17:20 | XMS_ITS | Encounter Summary ---
Author Organization [facility] Address 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 [facility] 2014 [place] [address] documented as of this encounter Visit Diagnoses Not on filedocumented in this encounter Care Teams Dispensing Audiologist Relationship Specialty Start Date End Date Marco Ramirez MD [address] [place] [address] PCP - General Internal Medicine 08/01/23 documented as of this encounter
--- OUTSIDE RECORDS SUMMARY | 2024-07-25 17:20 | XMS_ITS | Encounter Summary ---
Author Organization [facility] Address 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 Gender Identity Not on file Sexual Orientation Not on file documented as of this encounter Last Filed Vital Signs Vital Sign Reading Time Taken Comments Blood Pressure 130/80 09/09/2003 9:45 AM CDT Pulse - - Temperature - - Respiratory Rate - - Oxygen Saturation - - Inhaled Oxygen Concentration - - Weight 64.4 kg (142 lb) 09/09/2003 9:45 AM CDT Height - - Body Mass Index - - documented in this encounter Plan of Treatment Upcoming Encounters Date Type Department Care Team (Late Contact Info) Description 11/27/2024 2:40 PM CDT Office Visit [facility] Primary Care [address] [place] [address] Marco Ramirez MD [address] [place] [address] [address] [place] [address] 06/26/2025 11:45 AM CDT Office Visit [facility] Heart and Vascular At [facility] [address] [facility] [address] [place] [address] Sherman Mantilla MD [facility] 2014 [place] [address] documented as of this encounter Visit Diagnoses Not on filedocumented in this encounter Care Teams Manager Long Term Care Relationship Specialty Start Date End Date Marco Ramirez MD [address] [place] [phone] PCP - General Internal Medicine 08/01/23 documented as of this encounter
--- OUTSIDE RECORDS SUMMARY | 2024-07-25 17:20 | XMS_ITS | Encounter Summary ---
Author Organization [facility] Address 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 Gender Identity Not on file Sexual Orientation Not on file documented as of this encounter Last Filed Vital Signs Vital Sign Reading Time Taken Comments Blood Pressure 120/70 09/14/2004 1:00 PM CDT Pulse - - Temperature - - Respiratory Rate - - Oxygen Saturation - - Inhaled Oxygen Concentration - - Weight 64.9 kg (143 lb) 09/14/2004 1:00 PM CDT Height - - Body Mass Index - - documented in this encounter Plan of Treatment Upcoming Encounters Date Type Department Care Team (Late Contact Info) Description 11/27/2024 2:40 PM CDT Office Visit [facility] Primary Care [address] [place] [address] Marco Ramirez MD [address] [place] [address] [address] [place] [address] 06/26/2025 11:45 AM CDT Office Visit [facility] Heart and Vascular At [facility] [address] [facility] 2014 [place] [address] Sherman Mantilla MD [facility] 2014 [place] [address] documented as of this encounter Visit Diagnoses Not on filedocumented in this encounter Care Teams Shirt Trimmer Relationship Specialty Start Date End Date Marco Ramirez MD [address] [place] [phone] PCP - General Internal Medicine 08/01/23 documented as of this encounter
--- OUTSIDE RECORDS SUMMARY | 2024-07-25 17:20 | XMS_ITS | Encounter Summary ---
Author Organization [facility] Address 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 Gender Identity Not on file Sexual Orientation Not on file documented as of this encounter Last Filed Vital Signs Vital Sign Reading Time Taken Comments Blood Pressure 120/90 08/11/2005 4:15 PM CDT Pulse - - Temperature - - Respiratory Rate - - Oxygen Saturation - - Inhaled Oxygen Concentration - - Weight 65.3 kg (144 lb) 08/11/2005 4:15 PM CDT Height - - Body Mass Index - - documented in this encounter Plan of Treatment Upcoming Encounters Date Type Department Care Team (Late st Contact Info) Description 11/27/2024 2:40 PM CDT Office Visit [facility] Primary Care [address] [place] [address] Marco Ramirez MD [address] [place] [address] [address] [place] [address] 06/26/2025 11:45 AM CDT Office Visit [facility] Heart and Vascular At [facility] [address] [facility] [address] [place] [address] Sherman Mantilla MD [facility] 2014 [place] [address] documented as of this encounter Visit Diagnoses Not on filedocumented in this encounter Care Teams Cross Roller Relationship Specialty Start Date End Date Marco Ramirez MD [address] [place] [phone] PCP - General Internal Medicine 08/01/23 documented as of this encounter
--- OUTSIDE RECORDS SUMMARY | 2024-07-25 17:20 | XMS_ITS | Encounter Summary ---
Author Organization [facility] Address [address] [place] [address] Care Team Providers Care Supervisor Plastics Name Role Phone Marco Ramirez MD Primary Care Provider [phone] Encounter Details Date Type Department Care Team (Late st Contact Info) Description 04/15/2004 Outpatient Historical [facility] Internal Medicine [address] [address] Marco Ramirez MD [address] [place] [address] [address] [place] [address] Social History Tobacco Use Types Packs/Day Years Used Date Smoking Tobacco: Never Assessed Comments Unknown Sex and Gender Information Value Date Recorded Sex Assigned at Not on file 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 Gender Identity Not on file Sexual Orientation Not on file documented as of this encounter Last Filed Vital Signs Vital Sign Reading Time Taken Comments Blood Pressure 130/80 04/15/2004 2:00 PM COMMERCIAL LENDING ASSISTANT Pulse - - Temperature 36.7 C (98 F) 04/15/2004 2:00 PM COMMERCIAL LENDING ASSISTANT Respiratory Rate - - Oxygen Saturation - - Inhaled Oxygen Concentration - - Weight 64.9 kg (143 lb) 04/15/2004 2:00 PM COMMERCIAL LENDING ASSISTANT Height - - Body Mass Index - - documented in this encounter Plan of Treatment Upcoming Encounters Date Type Department Care Team (Late st Contact Info) Description 11/27/2024 2:40 PM CDT Office Visit [facility] Primary Care [address] [place] [address] Marco Ramirez MD [address] [place] [address] [address] [place] [address] 06/26/2025 11:45 AM CDT Office Visit [facility] Heart and Vascular At [facility] [address] [facility] 2014 [place] [address] Sherman Mantilla MD [address] [facility] 2014 [place] [address] documented as of this encounter Visit Diagnoses Not on filedocumented in this encounter Care Teams Supervisor Plastics Relationship Specialty Start Date End Date Marco Ramirez MD [address] [place] [address] [address] [place] [phone] PCP - General Internal Medicine 08/01/23 documented as of this encounter
--- OUTSIDE RECORDS SUMMARY | 2024-07-25 17:20 | XMS_ITS | Encounter Summary ---
Author Organization [facility] Address [address] [place] [address] Care Team Providers Care Marine Pilot Name Role Phone Marco Ramirez MD Primary Care Provider [phone] Reason for Referral * Physical Therapy (Routine) - Closed Specialty Diagnoses / Procedures Referred By Contac t Referred To Contact Physical Therapy Diagnoses Osteoarthritis of lumbar spine, unspecified spinal osteoarthritis complication status Marco Ramirez MD [address] [place] [address] [address] [place] [address] Phone: tel: fax: Referral ID Status Reason Start Date Expiration Date V isits Requested Visits Authorized [id number] Closed Ordering Dept to Review 10/28/2022 10/29/2023 6 6 Reason for Visit * Reason Onset Date Comments Physical Therapy Request 10/26/2022 Encounter Details Date Type Department Care Team (Late st Contact Info) Description 10/26/2022 Telephone [facility] Primary Care [address] [place] [address] Marco Ramirez MD [address] [place] [address] [address] [place] [address] Physical Therapy Request Social History Tobacco Use Types Packs/Day Years Used Date Smoking Tobacco: Never Smokeless Tobacco: Never Alcohol Use Standard Drinks/Week Comments Yes 0 (1 standard drink = 0.6 oz pur e alcohol) 4x/year Comments No Sex and Gender Information Value Date Recorded Sex Assigned at Not on file 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 Gender Identity Not on file Sexual Orientation Not on file documented as of this encounter Miscellaneous Notes * Telephone Encounter - Nafisa Thomas RMA - 10/28/2022 10:20 AM CDT Pt informed * Telephone Encounter - Marco Ramirez MD - 10/28/2022 9:41 AM CDT See order * Telephone Encounter - Jenifer Sher - 10/28/2022 9:27 AM CDT Please advise * Telephone Encounter - Harini Mckeon - 10/26/2022 11:58 AM CDT Provider: Marco Ramirez MD Next office visit: Visit date not found Caller: Shell Marin Message: The patient is having some moderate back pain in her lower left side of her back and in the past Physical Therapy has helped with this. The appts that are available don't work with with her schedule as she is babysitting her grandchild. If an order for physical Therapy could be placed she would be i nterested in that. She would like the order to be placed with [facility] in [place]. Pleaseadvise Call-back Number: Telephone Information: documented in this encounter Plan of Treatment Upcoming Encounters Date Type Department Care Team (Late st Contact Info) Description 11/27/2024 2:40 PM CDT Office Visit [facility] Care [address] [place] [address] Marco Ramirez MD [address] [place] [address] [address] [place] [phone] 06/26/2025 11:45 AM CDT Office Visit [facility] Heart and Vascular At [facility] [address] [facility] [address] [place] [address] Sherman Mantilla MD [address] [facility] 2014 [place] [address] Scheduled Referrals Name Type Priority Associated Diagnoses Orde r Schedule AMB REFERRAL TO PHYSICAL THERAPY Outpatient Referral Routine Osteoarthritis of lumbar spine, unspecified spinal osteoarthritis complication status Ordered: 10/28/2022 documented as of this encounter Visit Diagnoses Diagnosis Osteoarthritis of lumbar spine, unspecified spinal osteoarthritis complication status- Primary documented in this encounter Care Teams Marine Pilot Relationship Specialty Start Date End Date Marco Ramirez MD [address] [place] [phone] PCP - General Internal Medicine 08/01/23 documented as of this encounter
--- NOTE | 2024-07-25 17:23 | ED.ANIMALBIT ---
HPI - Animal Bite General Chief Complaint: Animal Bite Stated Complaint: dog bite Time Seen by Provider: 07/25/24 17:23 Source: patient Mode of arrival: ambulatory Limitations: no limitations History of Present Illness HPI narrative: Patient is a 68 year old female who presents to the clinic for complaints of a dog bite this afternoon to her the back of her right knee and left heel. She states that she cleaned the wound with Hibiclens and used Bactroban. She states that her last Tetanus shot was in November of 2018. Related Data Home Medications ?Medication ?Instructions ?Recorded ?Confirmed ?Last Taken ?Type levothyroxine 25 mcg tablet 25 mcg PO DAILY 09/02/23 09/02/23 Unknown History pravastatin 20 mg tablet 20 mg PO DAILY 09/02/23 09/02/23 Unknown History Allergies Allergy/AdvReac Type Severity Reaction Status Date / Time No Known Allergies Allergy Verified 02/09/21 13:38 Review of Systems Review of Systems: CONSTITUTIONAL: Denies body aches, fever, chills, or sweats. EYES: Denies visual changes, redness, or discharge. ENT: Denies rhinorrhea, congestion CARDIOVASCULAR: Denies chest pain, palpitations, or edema. RESPIRATORY: Denies cough or dyspnea. GASTROINTESTINAL: Denies abdominal pain, nausea, vomiting, or diarrhea. SKIN: ?Reports dog bite to back of right knee and left heel. MUSCULOSKELETAL: Denies back pain, joint pain, or myalgia. NEUROLOGIC: Denies headache, numbness, tingling, or weakness. All systems reviewed & are unremarkable except as noted in HPI and below PMFSH Past Medical History Medical History PVC (premature ventricular contraction) GERD (gastroesophageal reflux disease) Social History Social History Smoking status: Never smoker Comments At time of signature, I have reviewed and agree with nursing past medical, surgical, social and family history unless otherwise noted. Please see nursing chart for further information. There is no relevant family history pertinent to the presenting complaint. Exam Narrative: GENERAL: Well-appearing HEAD: Normocephalic, atraumatic. EYES: ?conjunctivae clear, and EOMI. ENT: Mucous membranes moist. Oropharynx without edema, erythema or lesions. NECK: Supple. No lymphadenopathy CHEST: Clear to auscultation. HEART: Regular rate and rhythm. SKIN: Warm, dry. ?Two puncture wound c/w dog bite noted to back of right knee. 1 cm abrasion noted to left heel. NEURO: ?Alert and oriented x3.? Course Course Level of Care: Express Care Visit Vital Signs Vital signs: Vital Signs Temperature 97.7 F 07/25/24 17:34 Pulse Rate 75 07/25/24 17:34 Respiratory Rate 18 07/25/24 17:34 Blood Pressure 147/102 H 07/25/24 17:34 Pulse Oximetry 99 07/25/24 17:34 Oxygen Delivery Room Air 07/25/24 17:34 Temperature 97.7 F 07/25/24 17:34 Pulse Rate 75 07/25/24 17:34 Respiratory Rate 18 07/25/24 17:34 Blood Pressure 147/102 H 07/25/24 17:34 Pulse Oximetry 99 07/25/24 17:34 Oxygen Delivery Room Air 07/25/24 17:34 Reviewed MDM - Animal Bite MDM Narrative Medical decision making narrative: Discussed physical exam findings. Wound irrigated. Antibiotic given for dog bite. Advised supportive measures and signs/symptoms to go to the ER. Pt is appropriate for outpatient treatment and follow up. Differential Diagnosis Differential diagnosis: Likely bite by animal and dog bite Critical Care Time Critical Care Time Critical Care Time: No Discharge Plan Discharge Clinical Impression: Dog bite Patient Disposition: Home Condition: Stable Instructions: Animal Bite (ED) Additional Instructions: Take antibiotic as prescribed. Clean with soap and water only; Avoid using alcohol and peroxide. Keep covered during the day. Use Mupirocin antibiotic daily. Elevate the affected area if possible Alternate Tylenol/ibuprofen for as needed for pain. Apply moist heat 3-4 times daily for 10-15 minutes. Please schedule a follow up visit with your personal physician for further evaluation and treatment within 3-5days OR if your symptoms persist, change or worsen significantly before you can contact your personal physician then please, without delay, go to the emergency department for further evaluation. If you experience any worsening redness, swelling, streaking (red lines), fever or chills please go to the ER Patient Language: Vietnamese Prescriptions: New amoxicillin-pot clavulanate 875-125 mg tablet 1 tablet PO Q12H 10 Days Qty: 20 0RF mupirocin [Centany] 2 % ointment 1 applic topical BID 7 Days Qty: 22 0RF No Action levothyroxine 25 mcg tablet 25 mcg PO DAILY pravastatin 20 mg tablet 20 mg PO DAILY Follow-up/Referrals: James,Marco Oneill MD [Primary Care Provider] - Time of Disposition: 17:54
[2024-07-25 17:34] VITALS: BP 147/102; PULSE 75; RESP 18; TEMP 36.5; O2SAT 99
--- OUTSIDE RECORDS SUMMARY | 2024-07-25 17:38 | XMS_ITS | Continuity of Care Document ---
Author Organization [facility] Address [address] [place] [address] Phone Care Team Providers Care Certified Registered Nurse Anesthetist Name Role Phone Dennis Ramirez MD Unavailable [...] Diagnoses Date Provider Providers Copied on Encounter [facility], [address], [place], [place], [id number], [place] tel:[phone] SEC Renny BLAIR Professional PRESBYOPIAOTHR MIGRNE WO NTRC MGRNTEAR FILM INSUFFIC NOS 2 Ashley Collins. [address] [facility] [address], [place], [place], [id number], [place]. tel:[phone] Referring Provider: Marco Ramirez MD M, [address] [facility] [address], [place], [address]. tel:[phone] Family History Family Member Type Diagnosis Age At Onset No Information Payers Payer name Insurance type Covered republican ID Authorjuliusa tibridger(s) R CI [id number] Social History Type Description Quantity Date Captured [...]
--- OUTSIDE RECORDS SUMMARY | 2024-07-25 17:38 | XMS_ITS | Clinical Summary ---
Author Organization [facility] Address [address] [place] [address] Phone Care Team Providers Care Roof Bolter Operator Name Role Phone Pavel Benitez MD Primary Care Provider Adam Chew MD Unavailable Allergies Active Allergy Reactions Criticality Noted Date Comments Cat Dander Runny Nose,Itching,Swelling High 11/26/2022 Sneezing Other-Environmental Allergen (Not Found In Search) Unknown High 11/26/2022 Blue dye /purple dye food dye makes patient very dizzy Other-Food Allergen (Not Found In Search) Diarrhea,Vomiting High 11/26/2022 Crab meat Medications Multiple Vitamin (MULTIVITAMIN ADULT PO)Indications:V isit for annual health examination (Adult) Take 1 Capsule by mouth daily. Active albuterol 108 (90 Base) MCG/ACT Aerosol Solution take 2 Puffs by inhalation. 1 Active aspirin 325 MG TabletIndication s:Visit for annual health examination (Adult) Take 325 mg by mouth. 1 Active raNITIdine (ZANTAC) 150 MG TabletIndication s:Gastroesophage al reflux disease with esophagitis without hemorrhage,Chambers tt's esophagus without dysplasia Take 1 Tablet by mouth 2 times daily. 60 Tablet 3 3 Active Additional Information Patient not taking.Reported on 02/03/2023 albuterol 108 (90 Base) MCG/ACT Aerosol Solution take 1 Puff by inhalation every 6 hours as needed for Cough. 18 g 3 Active Additional Information Patient not taking.Reported on 06/27/2023 fluticasone (FLONASE) 50 MCG/ACT Suspension 1 [place] by Nasal route daily. Use in each nostril as directed. 16 g 1 3 Active Additional Information Patient not taking.Reported on 06/27/2023 Active Problems Problem Noted Date Diagnosed Date Acute cough 02/08/2023 Congestion of respiratory tract 02/08/2023 Combined forms of age-related cataract of both e yes 07/26/2019 Overview (11/29/2022): Last Assessment & Plan: Early. Non-visually significant. 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 09/09/2003 Immunizations Immunization Administration Dates Next Due Hepatitis A Vaccine 01/21/2011 Hepatitis B Vaccine 10/05/2004,12/17/2003,2003 Inactivated Polio Vaccine 01/21/2011 Influenza Vaccine, Quadrivalent, PF 11/03/2020,1 03/12/2019 Influenza, Seasonal, Injecta ble, Undefined 03/28/2014,03/09/2013,12/22/2010,2009 TD VACCINE 09/07/2005 TDAP Vaccine 12/04/2018,03/01/2008 Tuberculin Skin Test; Purifi ed Protein Derivative Solutiol 02/18/2010 Typhoid, Oral 01/21/2011 Family History Medical History Relation Name Comments No Known Problems Brother 1 No Known Problems Brother 2 Cancer Father Throat Heart Disease Mother a fib Asthma Sister Hypertension Sister No Known Problems Son 1 Other-comment Son 2 Jennifer a taxia Relation Name Status Comments Brother 1 Alive Brother 2 Alive Father Mother Sister Alive Son 1 Alive Son 2 Alive Social History Tobacco Use Types Packs/Day Years Used Date Smoking Tobacco: Never Smokeless Tobacco: Never Tobacco Cessation:Counseling Given: No Alcohol Use Standard Drinks/Week Comments Never 0 (1 standard drink = 0.6 oz pur e alcohol) Sexually Active Control Partners Comments Yes Male Comments No Sex and Gender Information Value Date Recorded Sex Assigned at Not on file Legal Sex Female 12:22 AM CDT Gender Identity Not on file Sexual Orientation Not on file Last Filed Vital Signs Vital Sign Reading Time Taken Comments Blood Pressure 126/84 02/08/2023 1:37 PM VACUUM COOKER OPERATOR Pulse 76 02/08/2023 1:37 PM VACUUM COOKER OPERATOR Temperature 36.9 C (98.4 F) 02/08/2023 1:37 PM VACUUM COOKER OPERATOR Respiratory Rate 16 02/08/2023 1:37 PM VACUUM COOKER OPERATOR Oxygen Saturation 96% 02/08/2023 1:37 PM VACUUM COOKER OPERATOR Inhaled Oxygen Concentration - - Weight 59 kg (130 lb 1.6 oz) 02/08/2023 1:37 PM VACUUM COOKER OPERATOR Height 156.2 cm (5' 1.5) 02/08/2023 1:37 PM VACUUM COOKER OPERATOR Body Mass Index 24.18 02/08/2023 1:37 PM VACUUM COOKER OPERATOR Plan of Treatment Health Maintenance Due Date Last Done Comments Hepatitis C Virus (HCV) Screening 1955 Cologuard 11/04/2005 Immunochemical Fecal Occult Blood 11/04/2005 Pneumococcal Immunization (50+ years) (1 of 1 - PCV) 11/04/2005 Zoster Immunization (1 of 2) 11/04/2005 DEXA Bone Density 07/07/2018 07/07/2016, 07/07/2016 Mammogram 04/02/2022 04/02/2021, 03/24, 07/12/2019, Additional history exists Influenza Immunization (Season Ended) 2024 11/03/2020, 01/11/2020, 03/28/2014, Additional history exists Colonoscopy 09/20/2027 09/19/2017, 08/11/2017 Colorectal Cancer Screening 09/20/2027 Td Immunization Every 10 Years (Adults With 1 Tdap) 12/04/2028 12/04/2018, 03/01/2008, 09/07/2005 Respiratory Syncytial Virus (RSV) Immunization (Adult) (1 - 1-dose 75+ series) 11/04/2030 09/19/2017, 08/11/2017 Hepatitis B Immunization Completed , 12/17/2003, 10/30/2003 DTaP/Tdap/Td Immunization Discontinued 2018, 03/01/2008, 09/07/2005 SARS-COV-2 Immunization Discontinued 06/27/2020, 06/06 Human Papillomavirus (HPV) Immunization Aged Out No longer eligible based on patient's age to complete this topic Meningococcal Immunization (ACWY) Aged Out No longer eligible based on patient's age to complete this topic Rotavirus Immunization Aged Out No lo nger eligible based on patient's age to complete this topic Procedures Procedure Name Priority Date/Time Associated Diagnosis Comments COLONOSCOPY 08/11/2017 12:00 AM CDT from Last 3 Months or Most Recently Relevant to Health Maintenance Results * COLONOSCOPY (08/11/2017 12:00 AM CDT) 08/11/2017 us Provider Scan PROCEDURE/MINOR SURGICAL ORDERAB LES Final Result [facility] from Last 3 Months or Most Recently Relevant to Health Maintenance Insurance [facility] MEDICARE Care Teams Roof Bolter Operator Relationship Specialty Start Date End Date Pavel Benitez MD [address] [place] [address] PCP - General Family Medicine 11/29/22 08/17/24 Adam Chew MD [address] [address] Consulting Physician Colon and Rectal Surgery 01/06/23
[2024-07-25] MEDS: TETANUS/DIPHTHERIA TOXOIDS ADSORB 0.5 ML SYRINGE (*BKC) IM (18:04)
== END 2024-07-25 18:12 | disposition home or self-care (01) ==
PROVIDERS: PCP Internal Medicine
DX: S81.031A Puncture wound without foreign body, right knee, initial encounter (principal); W54.0XXA Bitten by dog, initial encounter; S90.812A Abrasion, left foot, initial encounter; Z23 Encounter for immunization; K21.9 Gastro-esophageal reflux disease without esophagitis
CPT/HCPCS: 90471; 90714; 99213; G0463